=== PATIENT | female | born 1940 | race Caucasian/White ===

== ENCOUNTER → 2016-06-10 | Outpatient (CLI) | payer MEDICARE ==
--- NOTE | 2016-06-10 10:49 | US ---
EXAMINATION TYPE: US thyroid st tissue head/neck DATE OF EXAM: 06/10/2016 10:36 AM COMPARISON: prior us in pacs CLINICAL HISTORY: E04.2 NONTOXIC MULTINODULAR GOITER. follow up on known nodules GLAND SIZE: Right Lobe: 3.4 x 1.2 x 1.5cm Left Lobe: 3.5 x 1.1 x 0.7 cm Isthmus Thickness: 0.3 cm NODULES RIGHT: # of nodules measured on right: 2 1. 1.0 X 0.4 x 0.6 cm hypoechoic complex cystic nodule at the upper anterior pole with well-defined margins. This nodule is wider than tall and shows no intranodular vascularity. Prior size: 0.9 x 0.5 x 0.4 cm 2. 1.2 X 0.6 x 0.4 cm hypoechoic mixed nodule at the anterior mid pole with well-defined margins. T his nodule is wider than tall and shows intranodular vascularity. Prior size: 1.3 x 0.9 x 0.7 cm LEFT: # of nodules measured on left: 1 1. 0.8 X 0.4 x 0.6 cm hypoechoic complex cystic nodule at the upper pole with well-defined margins. This nodule is wider than tall and shows no intranodular vascularity. Prior size: 1.1 x 1.0 x 0.7 cm ISTHMUS: # of nodules measured in the isthmus: 0 IMPRESSION: Stable multinodular thyroid given differences in technique. No significant interval change.
== END | disposition home or self-care (01) ==
LOC: LABWHC1 09:46
PROVIDERS: ATTEND Internal Medicine Endocrinology, Diabetes & Metabolism
DX: E04.2 Nontoxic multinodular goiter (principal)
CPT/HCPCS: 36415; 76536; 84439; 84443

== ENCOUNTER → 2016-12-17 | Outpatient (CLI) | payer MEDICARE ==
--- NOTE | 2016-12-17 16:36 | FL ---
EXAMINATION TYPE: FL barium swallow DATE OF EXAM: 12/17/2016 CLINICAL HISTORY: Reflux and dysphagia. TECHNIQUE: A double contrast esophagram is performed utilizing air and barium. A total of 1 minute and 2 seconds of fluoroscopic time was utilized during procedure with 71 images obtained. COMPARISON: None FINDINGS: The esophagus shows normal motility and emptying into the stomach. Small hiatal hernia is s een as well as moderate intraesophageal and gastroesophageal reflux in the gravity independent portio n of the examination utilizing the Valsalva maneuver. No stricture was identified, however the distal esophagus demonstrated irregular mucosal margins on few images that may indicate esophagitis. Additi onally vertically oriented linear densities also may represent esophagitis, similarly within the dist al esophagus. IMPRESSION: Moderate intraesophageal and gastroesophageal reflux to the level of the midthoracic esop hagus. Irregular mucosal margins and vertically oriented linear densities within the distal esophagus likely relate to at least mild esophagitis. Direct visualization is recommended. Small hiatal hernia is also seen.
== END | disposition home or self-care (01) ==
LOC: RADFLWHC 10:46
PROVIDERS: ATTEND Otolaryngology
DX: K21.9 Gastro-esophageal reflux disease without esophagitis (principal); K44.9 Diaphragmatic hernia without obstruction or gangrene
CPT/HCPCS: 74220

== ENCOUNTER 2017-01-24 08:52 | Inpatient (IN) | payer MEDICARE ==
[2017-01-24] MEDS ORDERED: SODIUM CHLORIDE 0.9% 1,000 ML IV STA ×2 (09:20→11:19)
--- NOTE | 2017-01-24 09:25 | ED ---
General Adult HPI - General Chief complaint: Abdominal Pain Stated complaint: abdominal pain Time Seen by Provider: 01/24/17 09:00 Source: patient, RN notes reviewed, old records reviewed Mode of arrival: ambulatory Limitations: no limitations - History of Present Illness Initial comments: Patient 76-year-old female who presents emergency room today with chief complaint of fever with abdominal pain. Patient does not that she's had abdominal pain with some cough congestion off and on over the last month. She does not that she's been treated for urinary tract infection. Currently on antibiotics of much of her tone. States she's been on a few other antibiotics but was having reactions to home before starting this one. Sensation SHE had a fever today. States took ibuprofen last night. Patient states that she still experiencing discomfort throughout the abdomen. She admits to a cough that is been somewhat nonproductive. She does admit to acid reflux. Patient states she came back here to the emergency room patient has had fever with increased abdominal pain with nausea and vomiting over the last 2 days. States she's not had any appetite. Patient denies any recent back pain, numbness or tingling, dysuria or hematuria, constipation or diarrhea, headaches or visual changes, or any other complaints. - Related Data Home Medications Medication Instructions Recorded Confirmed Esomeprazole Magnesium [Nexium 20 mg PO DAILY 09/20/15 01/24/17 24Hr] metFORMIN HCL [Glucophage] 500 mg PO BID 09/20/15 01/24/17 Escitalopram [Lexapro] 10 mg PO DAILY 01/24/17 01/24/17 Nitrofurantoin Monohyd/M-Cryst 100 mg PO Q12HR 01/24/17 01/24/17 [Macrobid] amLODIPine BESYLATE [Norvasc] 5 mg PO DAILY 01/24/17 01/24/17 Allergies Allergy/AdvReac Type Severity Reaction Status Date / Time No Known Allergies Allergy Verified 01/24/17 08:57 Review of Systems ROS Statement: Those systems with pertinent positive or pertinent negative responses have been documented in the HPI. ROS Other: All systems not noted in ROS Statement are negative. Past Medical History Past Medical History: Chest Pain / Angina, GERD/Reflux, Hypertension, Osteoarthritis (OA), Thyroid Disorder Additional Past Medical History / Comment(s): diverticulitits, hemorrhoids, slight urinary incontinence,, Arthritis, thyroid nodules, prediabetic History of Any Multi-Drug Resistant Organisms: None Reported Past Surgical History: Adenoidectomy, Appendectomy, Bladder Surgery, Hysterectomy, Tonsillectomy Additional Past Surgical History / Comment(s): Colonoscopy, carpal tunnel release, bone spur removed from right foot. Past Anesthesia/Blood Transfusion Reactions: No Reported Reaction Past Psychological History: Anxiety Smoking Status: Never smoker Past Alcohol Use History: None Reported Past Drug Use History: None Reported - Past Family History Mother Family Medical History: No Reported History Son(s) Family Medical History: Cancer Additional Family Medical History / Comment(s): Brain CA/, 2nd son - pulmonary fibrosis - , 1 son in house fire. General Exam - General Exam Comments Initial Comments: General: The patient is awake and alert, in no distress, and does not appear acutely ill. Eye: Pupils are equal, round and reactive to light, extra-ocular movements are intact. No nystagmus. There is normal conjunctiva bilaterally. No signs of icterus. Ears, nose, mouth and throat: There are moist mucous membranes and no oral lesions. Neck: The neck is supple, there is no tenderness or JVD. Cardiovascular: There is a regular rate and rhythm. No murmur, rub or gallop is appreciated. Respiratory: Lungs are clear to auscultation, respirations are non-labored, breath sounds are equal. No wheezes, stridor, rales, or rhonchi. Gastrointestinal: Normal appearance abdomen. Normal bowel sounds. Abdomen soft on palpation. Patient has diffuse tenderness throughout both upper and lower quadrants. No rebound tenderness. No guarding. No CVA tenderness. Musculoskeletal: Normal ROM, no tenderness. Strength 5/5. Sensation intact. Pulses equal bilaterally 2+. Neurological: A&O x 3. CN II-XII intact, There are no obvious motor or sensory deficits. Coordination appears grossly intact. Speech is normal. Skin: Skin is warm and dry and no rashes or lesions are noted. Psychiatric: Cooperative, appropriate mood & affect, normal judgment. Limitations: no limitations Course Vital Signs 01/24/17 01/24/17 01/24/17 08:54 09:56 10:56 Temperature 101.4 F H 100.6 F H Pulse Rate 127 H 115 H 109 H Respiratory 18 18 18 Rate Blood Pressure 139/78 143/65 139/63 O2 Sat by Pulse 93 L 91 L 91 L Oximetry 01/24/17 11:48 Temperature 98.6 F Pulse Rate 104 H Respiratory 18 Rate Blood Pressure 134/74 O2 Sat by Pulse 91 L Oximetry Medical Decision Making - Medical Decision Making Patient reexamined at this time shows no signs of distress. Patient's urinalysis does show [address] the abdomen and pelvis does show evidence for colitis. Patient been given a dose Rocephin here in the emergency room 2 g. Patient did have fever or 101.4F was tachycardic. Patient admitted to the hospital for further IV antibiotics. Patient family wear the plan. - Lab Data Result diagrams: 01/24/17 09:15 01/24/17 09:15 Lab Results 01/24/17 01/24/17 01/24/17 Range/Units 09:15 09:15 09:15 WBC 8.5 (3.8-10.6) k/uL RBC 4.55 (3.80-5.40) m/uL Hgb 12.6 (11.4-16.0) gm/dL Hct 39.9 (34.0-46.0) % MCV 87.8 (80.0-100.0) fL MCH 27.7 (25.0-35.0) pg MCHC 31.5 (31.0-37.0) g/dL RDW 15.5 (11.5-15.5) % Plt Count 155 (150-450) k/uL Neutrophils % 88 % Lymphocytes % 7 % Monocytes % 3 % Eosinophils % 2 % Basophils % 0 % Neutrophils # 7.5 (1.3-7.7) k/uL Lymphocytes # 0.6 L (1.0-4.8) k/uL Monocytes # 0.2 (0-1.0) k/uL Eosinophils # 0.1 (0-0.7) k/uL Basophils # 0.0 (0-0.2) k/uL PT (9.0-12.0) sec INR (<1.2) APTT (22.0-30.0) sec Sodium 138 (137-145) mmol/L Potassium 4.8 (3.5-5.1) mmol/L Chloride 103 (98-107) mmol/L Carbon Dioxide 22 (22-30) mmol/L Anion Gap 13 mmol/L BUN 17 (7-17) mg/dL Creatinine 0.68 (0.52-1.04) mg/dL Est GFR (MDRD) Af Amer >60 (>60 ml/min/1.73 sqM) Est GFR (MDRD) Non-Af >60 (>60 ml/min/1.73 sqM) Glucose 185 H (74-99) mg/dL Plasma Lactic Acid Reji 2.2 H* (0.7-2.0) mmol/L Calcium 9.5 (8.4-10.2) mg/dL Total Bilirubin 1.0 (0.2-1.3) mg/dL AST 33 (14-36) U/L ALT 39 (9-52) U/L Alkaline Phosphatase 37 L (38-126) U/L Total Protein 7.7 (6.3-8.2) g/dL Albumin 4.4 (3.5-5.0) g/dL Urine Color Urine Appearance (Clear) Urine pH (5.0-8.0) Ur Specific [place] (1.001-1.035) Urine Protein (Negative) Urine Glucose (UA) (Negative) Urine Ketones (Negative) Urine Blood (Negative) Urine Nitrite (Negative) Urine Bilirubin (Negative) Urine Urobilinogen (<2.0) mg/dL Ur Leukocyte Esterase (Negative) Urine RBC (0-5) /hpf Urine WBC (0-5) /hpf Ur Squamous Epith Cells (0-4) /hpf Urine Mucus (None) /hpf 01/24/17 01/24/17 Range/Units 09:15 09:15 WBC (3.8-10.6) k/uL RBC (3.80-5.40) m/uL Hgb (11.4-16.0) gm/dL Hct (34.0-46.0) % MCV (80.0-100.0) fL MCH (25.0-35.0) pg MCHC (31.0-37.0) g/dL RDW (11.5-15.5) % Plt Count (150-450) k/uL Neutrophils % % Lymphocytes % % Monocytes % % Eosinophils % % Basophils % % Neutrophils # (1.3-7.7) k/uL Lymphocytes # (1.0-4.8) k/uL Monocytes # (0-1.0) k/uL Eosinophils # (0-0.7) k/uL Basophils # (0-0.2) k/uL PT 10.9 (9.0-12.0) sec INR 1.1 (<1.2) APTT 22.6 (22.0-30.0) sec Sodium (137-145) mmol/L Potassium (3.5-5.1) mmol/L Chloride (98-107) mmol/L Carbon Dioxide (22-30) mmol/L Anion Gap mmol/L BUN (7-17) mg/dL Creatinine (0.52-1.04) mg/dL Est GFR (MDRD) Af Amer (>60 ml/min/1.73 sqM) Est GFR (MDRD) Non-Af (>60 ml/min/1.73 sqM) Glucose (74-99) mg/dL Plasma Lactic Acid Reji (0.7-2.0) mmol/L Calcium (8.4-10.2) mg/dL Total Bilirubin (0.2-1.3) mg/dL AST (14-36) U/L ALT (9-52) U/L Alkaline Phosphatase (38-126) U/L Total Protein (6.3-8.2) g/dL Albumin (3.5-5.0) g/dL Urine Color Yellow Urine Appearance Cloudy H (Clear) Urine pH 6.0 (5.0-8.0) Ur Specific [place] 1.021 (1.001-1.035) Urine Protein 1+ H (Negative) Urine Glucose (UA) Negative (Negative) Urine Ketones Trace H (Negative) Urine Blood Negative (Negative) Urine Nitrite Negative (Negative) Urine Bilirubin Negative (Negative) Urine Urobilinogen <2.0 (<2.0) mg/dL Ur Leukocyte Esterase Moderate H (Negative) Urine RBC 4 (0-5) /hpf Urine WBC 17 H (0-5) /hpf Ur Squamous Epith Cells 6 H (0-4) /hpf Urine Mucus Few H (None) /hpf Disposition Clinical Impression: Colitis, UTI (urinary tract infection), Fever Disposition: ADMITTED IP TO THIS [facility] Condition: Good Referrals: Ozzy Stout DO [Primary Care Provider] - 1-2 days Time of Disposition: 11:30
[2017-01-24] MEDS ORDERED: ACETAMINOPHEN IV (For NPO) 1,000 MG in EMPTY BAG 1 BAG IVPB STA (09:28)
[2017-01-24] MEDS ORDERED: ONDANSETRON 4 MG/2 ML VIAL IVP STA (09:28)
[2017-01-24 09:43] LABS: Basophils % (A) 0 %; CH 28.2; CHCM 32.3; Eosinophils # (A) 0.1 k/uL (0-0.7); Eosinophils % (A) 2 %; HCT 39.9 % (34.0-46.0); HDW 2.62; HGB 12.6 gm/dL (11.4-16.0); Luc # (Auto) 0.06; Luc % (Auto) 1; Lymphocytes # (A) 0.6 k/uL (1.0-4.8); Lymphocytes % (A) 7 %; MCH 27.7 pg (25.0-35.0); MCHC 31.5 g/dL (31.0-37.0); MCV 87.8 fL (80.0-100.0); Mean Platelet Volume 7.6; Monocytes # (A) 0.2 k/uL (0-1.0); Monocytes % (A) 3 %; Neutrophils # (A) 7.5 k/uL (1.3-7.7); Neutrophils % (A) 88 %; RBC 4.55 m/uL (3.80-5.40); RDW 15.5 % (11.5-15.5); WBC 8.5 k/uL (3.8-10.6); WBC (Perox) 8.93
[2017-01-24 09:52] LABS: Anion Gap 13 mmol/L; Calcium 9.5 mg/dL (8.4-10.2); Carbon Dioxide 22 mmol/L (22-30); Chloride 103 mmol/L (98-107); Glucose 185 mg/dL (74-99); Non-African American GFR(MDRD) >60 (>60 ml/min/1.73 sqM); Sodium 138 mmol/L (137-145); Total Protein 7.7 g/dL (6.3-8.2)
[2017-01-24 09:53] LABS: INR 1.1 (<1.2); Partial Thromboplastin Time 22.6 sec (22.0-30.0); Prothrombin Time 10.9 sec (9.0-12.0)
--- NOTE | 2017-01-24 09:53 | XR ---
EXAMINATION TYPE: XR chest 2V DATE OF EXAM: 01/24/2017 HISTORY: cough. REFERENCE: Previous study dated 03/07/2015. FINDINGS: Lung volumes are prominent. The lungs are clear. Pleural space are clear. The heart is not enlarged.. IMPRESSION: COPD.
[2017-01-24 09:54] LABS: Appearance,Urine Cloudy (Clear); Bilirubin,Urine Negative (Negative); Glucose,Urine (UA) Negative (Negative); Ketones,Urine Trace (Negative); Leukocyte Esterase,Urine Moderate (Negative); Mucus,Urine Few /hpf; Nitrite,Urine Negative (Negative); Particle Count 8840; Potassium 4.8 mmol/L (3.5-5.1); Protein,Urine 1+ (Negative); RBC,Urine 4 /hpf (0-5); Specific Gravity,Urine 1.021 (1.001-1.035); Squamous Epithelial Cell,Urine 6 /hpf (0-4); UA Billing (MACRO vs. MICRO) MICRO; Urobilinogen,Urine <2.0 mg/dL (<2.0); WBC,Urine 17 /hpf (0-5)
[2017-01-24 09:55] LABS: ALT 39 U/L (9-52); AST 33 U/L (14-36); Alkaline Phosphatase 37 U/L (38-126); Blood Urea Nitrogen 17 mg/dL (7-17)
[2017-01-24] MEDS ORDERED: RX INFO: IV CONTRAST WAS GIVEN 1 EACH MISC MISCELLANE PRN (10:10)
--- NOTE | 2017-01-24 11:00 | CT ---
EXAMINATION TYPE: CT abdomen pelvis w con DATE OF EXAM: 01/24/2017 REFERENCE: Previous study dated 12/19/2009 HISTORY: Pain HISTORY: Abdomen pain REFERENCE: NONE CT DLP: 570.8 mGy Automated exposure control for dose reduction was used. TECHNIQUE: Helical acquisition through the abdomen and pelvis was obtained following the oral ingesti on of without Oral Contrast and following intravenous administration of 100 mL of Omnipaque 300. The data was reformatted in axial, coronal and sagittal projections. FINDINGS: There is dependent atelectasis in the dependent portions of the lungs. There is no pleural or pericardial fluid. The heart is mildly enlarged. Within the abdomen, the liver is mildly prominent measuring 18 cm. The liver is fatty infiltrated. Sp meche and gallbladder are normal. Both adrenal glands are normal. Both kidneys demonstrate function and appear morphologically normal. The pancreas is unremarkable. There is no significant retroperitoneal, iliac or inguinal adenopathy. The bladder is unremarkable. Uterus and ovaries are not visualized. There are scattered diverticula within the sigmoid colon. There is no radiographic evidence of divert iculitis. There is mild thickening of the mucosa of the sigmoid colon as well as the ascending colon The appendix is not visualized. Small bowel loops are normal in caliber. There is no free fluid and no free air identified. There is mild hypertrophic spondylosis as well as degenerative disc disease in the spine. IMPRESSION: 1. THICKENING OF THE SIGMOID COLON WELL PART OF THE ASCENDING COLON IS SUSPICIOUS FOR COLITIS P LEASE CORRELATE CLINICALLY. 2. MILD CARDIOMEGALY. 3. MILD HEPATOMEGALY AND FATTY INFILTRATION OF THE LIVER. 4. SCATTERED DIVERTICULA WITHIN THE SIGMOID COLON. 5. MILD DEGENERATIVE CHANGE WITHIN THE SPINE.
[2017-01-24] MEDS ORDERED: cefTRIAXone IN SWFI 1,000 MG/10 ML SYRINGE IVP STA (11:26)
[2017-01-24] MEDS ORDERED: cefTRIAXone IN SWFI 2,000 MG/20 ML SYRINGE IVP STA (11:28)
[2017-01-24] MEDS ORDERED: ONDANSETRON 4 MG/2 ML VIAL IVP PRN (12:21)
[2017-01-24] MEDS ORDERED: NALOXONE 0.4 MG/ML 1 ML VIAL IV PRN (12:21)
[2017-01-24] MEDS ORDERED: HYDROmorphone 1 MG/ML 1 ML SYRINGE IVP PRN (12:21)
[2017-01-24 13:51] LABS: Glucose,Whole Blood 146 mg/dL (75-99)
[2017-01-24] MEDS ORDERED: LEVOFLOXACIN 500MG-D5W PMX 500 MG in DEXTROSE/WATER 1 100ML.BAG IVPB SCH (16:00)
[2017-01-24] MEDS: ACETAMINOPHEN TAB 325 MG TAB PO PRN ×2 (16:03→21:23)
[2017-01-24 17:16] LABS: Glucose,Whole Blood 132 mg/dL (75-99)
[2017-01-24] MEDS: metroNIDAZOLE 500 MG TAB PO SCH ×2 (17:25→21:06)
--- NOTE | 2017-01-24 17:47 | HP ---
HISTORY AND PHYSICAL DATE OF SERVICE: 01/24/2017 I am covering for Dr. Stout. CHIEF COMPLAINT: Abdominal pain. HISTORY OF PRESENT ILLNESS: This 76-year-old woman with a past medical history of multiple medical problems including, GERD, hypertension, DJD, history of diverticulitis complaining of abdominal pain. The pain is felt and diffusely with some underlying fever. The patient has some cough and congestion also. Patient recently treated diagnosed with a UTI in outpatient setting. Because of lack of improvement, patient came to [facility] and admitted to the hospital further recommendations to follow. There is no history of any rigors. No history of headache, loss of consciousness or seizures. Patient had an abdominal pelvic CT scan which was reviewed by me which showed some thickening of the sigmoid colon, as well as part of the ascending colon suspicions of colitis. Otherwise, mild hepatomegaly was noted. There is no history of any fever, rigors or chills. No history of headache, loss of consciousness or seizures. PAST MEDICAL HISTORY: History of chest pain, GERD, hypertension DJD, PAST SURGICAL HISTORY: none MEDS: 2. Norvasc 5 mg p.o. daily. 4. Lexapro 10 mg daily. 5. Macrobid 100 mg p.o. b.i.d. 6. Glucovance 500 mg p.o. b.i.d. ALLERGIES: CIPRO. FAMILY HISTORY: History of cancer in the family. Brain cancer. SOCIAL HISTORY: No history of smoking. No history of alcohol intake. REVIEW OF SYSTEMS: ENT: No diminished vision. No diminished hearing. Cardiovascular: No angina or palpitations. Respirations: No cough or hemoptysis. GI: No nausea or vomiting. : No dysuria. Nervous system: No numbness or weakness. Allergy/Immunology: No asthma or hayfever. Musculoskeletal: As mentioned earlier. Hematology/Oncology: No history of anemia. Endocrine: No history of diabetes or hypothyroidism. Constitutional: As mentioned earlier. Dermatology: Negative. Rheumatology: Negative. Psychiatric : As mentioned earlier. PHYSICAL EXAMINATION: Alert and oriented times three. Pulse is 105, blood pressure 170/62, respiration 18, temp 99.1, pulse ox 98% room air. HEENT conjunctivae normal. Oral mucosa moist. Neck is no jugular venous distention. No carotid bruits. No lymph node enlargement. Cardiovascular: S1, S2 muffled. Breath sounds diminished in the bases. No rhonchi. No crackles. ABDOMEN: Soft. Mild diffuse discomfort on palpation. No guarding. No rigidity. No mass palpable. Legs: No edema, no swelling. Central nervous system: Higher functions as mentioned. Moves all four extremities. No focal deficits. Lymphatics: No lymph nodes palpable in the neck, axillae or groin. Skin: No ulcer, rashes or bleeding. LAB: CBC within normal limits. Otherwise, plasma lactic acidosis is 2.2. UA noted. ASSESSMENT: 1. Abdominal pain with possibly sigmoid colitis. 2. Acute urinary tract infection possibly. 3. History of gastroesophageal reflux disease. 4. Hypertension. 5. History of degenerative joint disease. 6. Hypothyroidism. 7. History of hemorrhoids. 8. History of anxiety and depression. RECOMMENDATION: In this 76-year-old woman who presented with multiple complex medical issues, we will monitor the patient closely, continue the current management. Continue symptomatic treatment. Broad spectrum IV antibiotics. Otherwise, I would also recommend Flagyl to also add to the regime. Repeat labs. Symptomatic treatment for the pain. Consult Dr. Hunt for surgical evaluation. Further recommendations to follow. The patient will follow with Dr. Aponte who is the primary care physician. MMODL / IJN: [id number] / MTDD
[2017-01-24 20:57] LABS: Glucose,Whole Blood 173 mg/dL (75-99)
[2017-01-24] MEDS: HEPARIN SODIUM,PORCINE 5,000 UNIT/ML 1 ML VIAL SQ SCH (21:06)
[2017-01-24] MEDS: diphenhydrAMINE 50 MG/ML 1 ML VIAL IVP PRN (21:12)
[2017-01-24] MEDS ORDERED: IBUPROFEN 400 MG TAB PO STA (23:29)
[2017-01-24 23:34] LABS: Basophils % (A) 0 %; CH 27.7; CHCM 31.8; Eosinophils # (A) 0.2 k/uL (0-0.7); Eosinophils % (A) 3 %; HCT 34.7 % (34.0-46.0); HDW 2.76; HGB 10.9 gm/dL (11.4-16.0); Hypochromasia Slight; Luc # (Auto) 0.05; Luc % (Auto) 1; Lymphocytes # (A) 0.7 k/uL (1.0-4.8); Lymphocytes % (A) 13 %; MCH 27.4 pg (25.0-35.0); MCHC 31.3 g/dL (31.0-37.0); MCV 87.3 fL (80.0-100.0); Mean Platelet Volume 7.6; Monocytes # (A) 0.2 k/uL (0-1.0); Monocytes % (A) 3 %; Neutrophils # (A) 4.1 k/uL (1.3-7.7); Neutrophils % (A) 79 %; RBC 3.97 m/uL (3.80-5.40); RDW 13.9 % (11.5-15.5); WBC 5.1 k/uL (3.8-10.6); WBC (Perox) 5.07
[2017-01-25] MEDS: diphenhydrAMINE 50 MG/ML 1 ML VIAL IVP PRN (05:56)
[2017-01-25 07:32] LABS: Glucose,Whole Blood 127 mg/dL (75-99)
[2017-01-25 08:04] LABS: Basophils % (A) 0 %; CH 26.8; CHCM 30.9; Eosinophils # (A) 0.1 k/uL (0-0.7); Eosinophils % (A) 3 %; HCT 34.4 % (34.0-46.0); HDW 2.55; HGB 10.8 gm/dL (11.4-16.0); Hypochromasia Slight; Luc # (Auto) 0.06; Luc % (Auto) 2; Lymphocytes # (A) 0.7 k/uL (1.0-4.8); Lymphocytes % (A) 18 %; MCH 27.3 pg (25.0-35.0); MCHC 31.4 g/dL (31.0-37.0); Mean Platelet Volume 8.2; Monocytes # (A) 0.2 k/uL (0-1.0); Monocytes % (A) 4 %; Neutrophils # (A) 2.8 k/uL (1.3-7.7); Neutrophils % (A) 74 %; RBC 3.96 m/uL (3.80-5.40); RDW 14.9 % (11.5-15.5); WBC 3.9 k/uL (3.8-10.6)
[2017-01-25] MEDS: PANTOPRAZOLE 40 MG TABLET PO SCH (08:05)
[2017-01-25] MEDS: amLODIPine 5 MG TAB PO SCH (08:05)
[2017-01-25] MEDS: metroNIDAZOLE 500 MG TAB PO SCH ×3 (08:06→22:56)
[2017-01-25] MEDS: HEPARIN SODIUM,PORCINE 5,000 UNIT/ML 1 ML VIAL SQ SCH ×2 (08:06→20:37)
[2017-01-25] MEDS: ESCITALOPRAM 10 MG TAB PO SCH (08:06)
[2017-01-25 08:28] LABS: ALT 43 U/L (9-52); AST 25 U/L (14-36); Alkaline Phosphatase 30 U/L (38-126); Anion Gap 7 mmol/L; Blood Urea Nitrogen 13 mg/dL (7-17); Calcium 8.7 mg/dL (8.4-10.2); Carbon Dioxide 23 mmol/L (22-30); Chloride 111 mmol/L (98-107); Glucose 132 mg/dL (74-99); Non-African American GFR(MDRD) >60 (>60 ml/min/1.73 sqM); Potassium 3.7 mmol/L (3.5-5.1); Sodium 141 mmol/L (137-145); Total Bilirubin 0.4 mg/dL (0.2-1.3); Total Protein 5.8 g/dL (6.3-8.2)
[2017-01-25] MEDS ORDERED: cefTRIAXone IN SWFI 2,000 MG/20 ML SYRINGE IVP SCH (09:00)
--- NOTE | 2017-01-25 11:33 | CONS ---
CONSULTATION HISTORY: Thank you very much for asking us to see Ms. Hung. She has been seeing before Dr. Escobedo. She is a 76-year-old white female who has a history of urinary tract infection. She has had some lower abdominal pain off and on. Currently on antibiotic, but she states that she has not responded. In fact she was admitted with more abdominal pain, nausea, vomiting. Claims she did have a few loose stools about 3 or 4 days prior to admission, but the last 2 days she has had normal formed stool. Her CT scan in the ER did show evidence of question of colitis with thickening of the bowel wall in the transverse and sigmoid colon and diverticulosis without evidence of diverticulitis. She thinks she had a colonoscopy many years ago, but not in the recent past. No history of colitis or inflammatory bowel disease. Has been however on several different antibiotic courses over the last several months. Does have a lot of allergies to different antibiotics. She feels a lot better since admission. No nausea, vomiting now. She is tolerating p.o. fluids. PAST HISTORY: Positive for reflux disease, diverticulitis in the past. History of hypothyroidism, GERD, hypertension, degenerative joint disease, chest pains. PAST SURGICAL HISTORY: Previous surgery includes a bladder suspension surgery. T and A, appendectomy, hysterectomy, tonsillectomy and colonoscopy, carpal tunnel release and bone spur removal from the foot. Does have a history of anxiety. MEDICATIONS: Include metformin for her diabetes. Also Lexapro, Macrobid at home now, discontinued; Norvasc and Nexium. REVIEW OF SYMPTOMS: Systems review as above. No current chest pain. Has had a cough, mild. No hemoptysis. No vaginal discharge or bleeding. No blood in the stool. PHYSICAL EXAMINATION: On examination, the patient is well built, well nourished, somewhat overweight at 28.3 BMI. Hydration appears satisfactory. She is resting comfortably in no acute distress. Temperature is 99. Color and hydration is satisfactory. Heart regular rhythm. No murmurs. Lungs are clear. Abdomen is a little obese, soft, mild tenderness in the low abdomen, but no guarding or rebound or rigidity. No mass or organomegaly or hernias noted. No definite CVA tenderness. Well-healed lower abdominal scars. INVESTIGATIONS: CT was reviewed showing thickening of the sigmoid colon and ascending colon. I suspect this is nonspecific in nature. Doubt inflammatory condition. Mild hepatomegaly and fatty infiltration of the liver was noted and diverticulosis without inflammation. IMPRESSION: Suspect symptoms are probably secondary to urinary tract infection. Doubt inflammatory condition of the bowel since she has not had any diarrhea in the last several days. However, I do recommend a colonoscopy once she has recovered from the current situation. In the meantime, continue with the antibiotics. Normal diet. Dr. Escobedo will follow up with her from tomorrow. MMODL / ARCELIAN: [id number] /
[2017-01-25 12:23] LABS: Glucose,Whole Blood 196 mg/dL (75-99)
[2017-01-25] MEDS: HYDROcodone/APAP 5-325MG 1 EACH TAB PO PRN ×2 (14:28→20:36)
[2017-01-25] MEDS ORDERED: IBUPROFEN 400 MG TAB PO PRN (15:54)
--- NOTE | 2017-01-25 17:36 | PN ---
PROGRESS NOTE I am covering for Dr. Stout. DATE OF SERVICE: 01/25/2017 This 76-year-old woman who had a past medical history of multiple medical problems admitted with abdominal pain and possible sigmoid colitis. Patient also has skin rash. Also patient had UTI. Patient on empiric antibiotics. No chest pain. No palpitations. No fever. EXAM: Alert and oriented x3. Pulse is 94, blood pressure 139/72, respirations 16, temperature 99.1, T-max 102.7, pulse ox 95% on 2 L. HEENT: Conjunctivae normal. NECK: No jugular venous distention. CARDIOVASCULAR: S1, S2. RESPIRATORY: Breath sounds diminished in the bases. A few scattered rhonchi and crackles. ABDOMEN: Soft, nontender. LEGS: No edema. NERVOUS SYSTEM: No focal deficits. LABS: WBC 3.2, hemoglobin 10.8. ASSESSMENT: 1. Abdominal pain with possible sigmoid colitis. 2. Acute urinary tract infection possibly. 3. Continued fever. 4. Skin rash, possible allergic. 5. History of gastroesophageal reflux disease. 6. Hypertension. 7. History of degenerative joint disease. 8. Hypothyroidism. 9. History hemorrhoids. 10.History of anxiety, depression. RECOMMENDATIONS AND DISCUSSION: I recommend to continue current medications and symptomatic treatment. Continue on broad-spectrum IV antibiotics. Guarded prognosis because of multiple complex medical issues and further recommendations to follow. Otherwise I would also recommend Dr. Hunt has been consulted for abdominal pain. I would also consult Infectious Disease for evaluation. Otherwise, guarded prognosis because of multiple complex medical issues. Further recommendations to follow. Dr. Stout will follow. MMODL / IJN: [id number] /
[2017-01-25 17:37] LABS: Glucose,Whole Blood 107 mg/dL (75-99)
[2017-01-25 21:17] LABS: Glucose,Whole Blood 281 mg/dL (75-99)
[2017-01-25] MEDS: AZTREONAM 2 GM in SODIUM CHLORIDE 0.9% 100 ML IVPB SCH (22:56)
--- NOTE | 2017-01-26 05:32 | CONS ---
CONSULTATION DATE OF SERVICE: 01/25/2017. REASON FOR CONSULTATION: Fever and colitis. HISTORY OF PRESENT ILLNESS: The patient is a 76-year-old female who presented to the ER at [facility] on 01/24/2017 with chief complaints of abdominal pain. The patient's symptom has been going on for the last 2 days prior to presentation to hospital. The pain has been more across the abdominal area 7 to 10/23. The patient has been nauseated with the patient did mention that she did have loose stool 2 days prior to presentation to the hospital. However, since the patient has been in the hospital diarrhea has resolved. The patient was evaluated by the ER physician. On arrival to the ER the patient did have a fever of 101.4 degrees Fahrenheit. The patient did have a normal white count though. The UA was positive. The patient did have a CT abdominal pelvis was done with IV contrast only. No oral contrast. Did show evidence of ascending colon as well as sigmoid colitis, but no evidence of any diverticulitis. The patient was started on Rocephin and Flagyl. Subsequently the patient developed a rash and now having a persistent fever for which ID was consulted for further recommendation regarding rash as well as antibiotic therapy. The patient did mention that her abdominal pain is currently resolved. She denies having any nausea, vomiting. No further BMs. No significant urinary symptoms of any burning or frequency. REVIEW OF SYSTEMS: Constitutional: Positive for weakness and fever. Eyes no complaint. ENT no complaint. Respiratory no complaint. Cardiovascular no complaint. Genitourinary no complaint. Gastrointestinal As per HPI. Musculoskeletal no complaint. Integumentary As per HPI. PSYCHOLOGICAL: No complaint. Endocrine no complaint. Neurological no complaint. PAST MEDICAL HISTORY: Significant for hypertension, hypothyroidism, osteoarthritis, gastroesophageal reflux disease, angina, urinary incontinence and UTIs. PAST SURGICAL HISTORY: Significant for appendectomy, adenoidectomy, bladder surgery, hysterectomy, tonsillectomy. SOCIAL HISTORY: No history of smoking, drinking, or drug use. FAMILY HISTORY: Son with brain cancer, second son with pulmonary fibrosis. ALLERGIES TO: CIPROFLOXACIN WITH A RASH. MEDICATIONS: Include the patient is currently on Tylenol, Candor, Norvasc, Rocephin 2 g daily , she is on Benadryl, Lexapro, heparin, Dilaudid, Motrin, Flagyl, Narcan, Zofran and Protonix. EXAMINATION: Blood pressure is 133/65 with a pulse of 98, temperature of 100.4, T-max 102.7. She is 94% on 2 L nasal cannula. General description is an elderly female, lying in bed in no distress. No tachypnea or accessory muscle of respiration use. HEENT: Shows slight pallor. No scleral icterus. Oral mucous membranes dry. Neck trachea central no thyromegaly. Lungs unlabored breathing. Clear to auscultation anteriorly. No wheeze or crackle. Heart S1, S2. Regular rate and rhythm. ABDOMEN: Soft, no tenderness. No guarding or rigidity. EXTREMITIES: No edema of the feet. Examination shows a maculopapular rash involving the upper and lower extremity and the trunk. Neurological patient is awake, alert, oriented x3. Mood and affect normal. LABS: Hemoglobin is 10.8, white count 3.9, BUN of 13, creatinine 0.60. Electrolytes have been normal. Liver enzymes are normal. Urine was positive. Culture so far negative. Blood cultures negative. CT report mentioned above. DIAGNOSTIC IMPRESSION AND PLAN: Patient admitted to the hospital with fever, abdominal pain. Patient did have evidence of colitis involving the ascending and sigmoid colon but did not have any evidence of diverticulitis. The patient did have some diarrhea prior to that and has some negative antibiotic exposure. C dif would have been the likely etiology. However, unlikely in view of resolution of her diarrhea and the patient does seem to have improvement with Rocephin and Flagyl therapy. Now the patient did develop a rash more likely secondary to the Rocephin and some of this persistent fever could be related to the Rocephin administration and allergic reaction. PLAN: 1. We will discontinue the Rocephin. 2. Will start the patient on Azactam 2 g q.8h and continue with Flagyl. 3. Depending upon clinical response, we will adjust her medications further if needed. Thank you for this consultation. Will follow this patient along with you. MMODL / IJN: [id number] / MTDD
[2017-01-26 07:36] LABS: Glucose,Whole Blood 120 mg/dL (75-99)
[2017-01-26] MEDS: HYDROcodone/APAP 5-325MG 1 EACH TAB PO PRN ×2 (07:39→22:31)
--- NOTE | 2017-01-26 07:53 | P.PN ---
Progress Note - Text Progress Note Date: 01/26/17 The patient states she feels better. She has no significant abdominal pain. On exam her vital signs are stable. Her abdomen soft. Patiently discharged home per Dr. Stout. She'll follow-up with myself in the office and be scheduled for outpatient colonoscopy.
[2017-01-26] MEDS: amLODIPine 5 MG TAB PO SCH (07:59)
[2017-01-26] MEDS: HEPARIN SODIUM,PORCINE 5,000 UNIT/ML 1 ML VIAL SQ SCH ×2 (07:59→20:23)
[2017-01-26] MEDS: AZTREONAM 2 GM in SODIUM CHLORIDE 0.9% 100 ML IVPB SCH ×2 (07:59→16:55)
[2017-01-26] MEDS: ESCITALOPRAM 10 MG TAB PO SCH (07:59)
[2017-01-26] MEDS: PANTOPRAZOLE 40 MG TABLET PO SCH (07:59)
[2017-01-26] MEDS: metroNIDAZOLE 500 MG TAB PO SCH ×3 (08:00→22:31)
[2017-01-26] MEDS: metFORMIN 500 MG TAB PO SCH ×2 (08:02→17:33)
[2017-01-26] MEDS: diphenhydrAMINE 50 MG/ML 1 ML VIAL IVP PRN (08:08)
[2017-01-26 08:30] LABS: Basophils % (A) 0 %; CH 27.1; CHCM 30.9; Eosinophils # (A) 0.2 k/uL (0-0.7); Eosinophils % (A) 7 %; HCT 35.7 % (34.0-46.0); HDW 2.67; Hypochromasia Moderate; Luc # (Auto) 0.03; Luc % (Auto) 1; Lymphocytes # (A) 0.9 k/uL (1.0-4.8); Lymphocytes % (A) 29 %; MCH 27.2 pg (25.0-35.0); MCHC 30.8 g/dL (31.0-37.0); MCV 88.1 fL (80.0-100.0); Mean Platelet Volume 8.5; Monocytes # (A) 0.1 k/uL (0-1.0); Monocytes % (A) 5 %; Neutrophils # (A) 1.9 k/uL (1.3-7.7); Neutrophils % (A) 59 %; RBC 4.06 m/uL (3.80-5.40); RDW 15.2 % (11.5-15.5); WBC 3.2 k/uL (3.8-10.6); WBC (Perox) 3.49
[2017-01-26 08:47] LABS: Anion Gap 9 mmol/L; Blood Urea Nitrogen 12 mg/dL (7-17); Carbon Dioxide 23 mmol/L (22-30); Chloride 110 mmol/L (98-107); Glucose 130 mg/dL (74-99); Non-African American GFR(MDRD) >60 (>60 ml/min/1.73 sqM); Potassium 4.1 mmol/L (3.5-5.1); Sodium 142 mmol/L (137-145)
--- NOTE | 2017-01-26 10:10 | P.PN ---
Subjective Progress Note Date: 01/26/17 76-year-old female who was seen and examined on rounds with Dr. Stout. The patient presented to the ER on 01/24/2017 with abdominal pain. She was recently treated outpatient for a UTI and was prescribed Macrobid. Her urinalysis in the emergency room showed moderate leukocyte esterase. The patient underwent CT of the abdomen and pelvis which revealed thickening of the sigmoid colon as well as part of the ascending colon which was suspicious for colitis. Surgical consultation was obtained who believes abdominal pain is due to urinary tract infection rather than colitis as she is not having diarrhea. No acute intervention per surgery, but recommends patient have colonoscopy outpatient. Infectious disease was consulted for antibiotic management. The patient developed a rash on her lateral upper extremities. Patient's Rocephin was discontinued. She remains on Flagyl and was also started on Azactam per infectious disease. Urine culture was negative. Blood culture negative at 24 hour ashtyn. Objective - Vital Signs Vital signs: Vital Signs Temp 97.7 F 01/26/17 07:00 Pulse 81 01/26/17 07:00 Resp 17 01/26/17 07:00 BP 141/86 01/26/17 07:00 Pulse Ox 95 01/26/17 09:35 Intake & Output 01/25/17 01/26/17 01/26/17 18:59 06:59 18:59 Intake Total 1100 300 Output Total 1 Balance 1100 299 Intake: Oral 1100 300 Output: Stool 1 Other: Voiding Method Toilet Toilet # Voids 3 1 - Exam GENERAL: This is a 76-year-old female in no apparent distress at the time of examination. Pleasant and cooperative. HEENT: Head is atraumatic, normocephalic. Pupils are equal, round, and reactive to light. Sclerae anicteric. Conjunctivae are clear. Mucus membranes of the mouth are moist. Neck is supple. RESPIRATORY: Clear to ausculation. No wheezes, rales, or rhonchi. No use of accessory muscles. Patient maintaining oxygen saturation greater than 92%. No chest wall tenderness is noted on palpation or with deep breathing. CARDIOVASCULAR: Regular rate and rhythm. S1 and S2 noted. No systolic or diastolic murmur auscultated. No JVD noted. No S3 or S4 noted. GASTROINTESTINAL: No distention noted. Abdomen soft and round. Normal active bowel sounds auscultated X 4 quadrants. No pain or tenderness noted upon palpation. INTEGUMENTARY: No cyanosis. No jaundice. No rashes noted. No cellulitis noted. EXTREMITIES: 2+ peripheral pulses. No evidence of peripheral edema. No calf tenderness noted. NEUROLOGIC: Cranial nerves II-XII intact. PSYCHIATRIC: Awake, alert, and oriented X 3. Appropriate affect. Intact judgement and insight. - Labs CBC & Chem 7: 01/26/17 07:53 01/26/17 07:53 Labs: Abnormal Lab Results - Last 24 Hours (Table) 01/25/17 01/25/17 01/25/17 Range/Units 07:40 12:15 17:33 WBC (3.8-10.6) k/uL Hgb (11.4-16.0) gm/dL MCHC (31.0-37.0) g/dL Plt Count (150-450) k/uL Lymphocytes # (1.0-4.8) k/uL Chloride (98-107) mmol/L Glucose (74-99) mg/dL POC Glucose (mg/dL) 196 H 107 H (75-99) mg/dL Hemoglobin A1c 6.7 H (4.0-6.0) % 01/25/17 01/26/17 01/26/17 Range/Units 21:09 07:34 07:53 WBC 3.2 L (3.8-10.6) k/uL Hgb 11.0 L (11.4-16.0) gm/dL MCHC 30.8 L (31.0-37.0) g/dL Plt Count 140 L (150-450) k/uL Lymphocytes # 0.9 L (1.0-4.8) k/uL Chloride (98-107) mmol/L Glucose (74-99) mg/dL POC Glucose (mg/dL) 281 H 120 H (75-99) mg/dL Hemoglobin A1c (4.0-6.0) % 01/26/17 Range/Units 07:53 WBC (3.8-10.6) k/uL Hgb (11.4-16.0) gm/dL MCHC (31.0-37.0) g/dL Plt Count (150-450) k/uL Lymphocytes # (1.0-4.8) k/uL Chloride 110 H (98-107) mmol/L Glucose 130 H (74-99) mg/dL POC Glucose (mg/dL) (75-99) mg/dL Hemoglobin A1c (4.0-6.0) % Microbiology - Last 24 Hours (Table) 01/24/17 09:15 Urine Culture - Final Urine,Voided 01/24/17 09:15 Blood Culture - Preliminary Blood No Growth after 24 hours Assessment and Plan Plan: ASSESSMENT: Urinary tract infection, present on admission, recently treated outpatient with Macrobid Abdominal pain, CT scan suggestive of possible sigmoid colitis, may be secondary to urinary tract infection, improving Rash of bilateral upper extremities, possibly secondary to Rocephin History of gastroesophageal reflux disease History of diverticulitis Essential hypertension Hypothyroidism PLAN: -Surgery on consult. No acute intervention at this time. -Patient to have colonoscopy outpatient. -Infectious disease on consult. Appreciate recommendations and input -Antibiotics per infectious disease: continue current antibiotics. If patients rash is better tomorrow she can receive one dose of unasyn tomorrow and then can be discharged home on Augmentin per Dr. Canada. -Short course of steroids for rash. Continue to monitor rash. -Home meds as appropriate -Monitor labs -Wean oxygen as tolerated -GI prophylaxis: Protonix 40 mg by mouth daily -DVT prophylaxis: Heparin 5000 units subcu every 12 hours -Monitor vital signs and address as appropriate -Discharge planning: Patient to return home Nurse practitioner note has been reviewed by physician. Signing provider agrees with the documented findings, assessment, and plan of care.
[2017-01-26 12:06] LABS: Glucose,Whole Blood 157 mg/dL (75-99)
--- NOTE | 2017-01-26 12:13 | PN ---
PROGRESS NOTE DATE OF SERVICE: 01/26/2017. REASON FOR FOLLOWUP: Colitis and drug rash. INTERVAL HISTORY: The patient fever pattern has improved. Afebrile since last night. The patient is feeling better slightly. Still having a rash, mostly in the left arm area. The patient denies any chest pain or shortness of breath, cough. No abdominal pain. Did not have a bowel movement though. EXAMINATION: Blood pressure 141/86 with a pulse of 81, temperature 97.7, she is 95% on 2 L nasal cannula. General description is an elderly female lying in bed in no distress. Respiratory system: Unlabored breathing clear to auscultation anteriorly, heart S1, S2. Regular rate and rhythm. Abdomen soft, no tenderness. Examination of the rash is mostly in the arm, though not as much on the torso. LABS: Hemoglobin is 11, white count 3.2 with a BUN of 12, creatinine 0.52. Blood and urine cultures so far negative. DIAGNOSTIC IMPRESSION AND PLAN: Patient admitted to the hospital with abdominal pain, no vomiting, diarrhea. The patient did have evidence of ascending and sigmoid colon colitis with no evidence of any diverticulitis. Patient did develop a rash secondary to Rocephin with improvement of the fever with discontinuation of the Rocephin. She is currently on Azactam and Flagyl that will be continued. for 24 hours and if that helps with the rash she will be given a test dose of Unasyn if she tolerates. Plan will be finish therapy with oral Augmentin. In the meantime if the patient did have loose stool we will request stool for C diff as well as stool culture. Plan of care discussed in detail with the nurse as well as the nurse practitioner for the primary team. MMODL / IJN: [id number] / MELISSA
[2017-01-26] MEDS: methylPREDNISolone SOD SUCCI 125 MG/2 ML VIAL IV SCH ×2 (12:47→17:33)
[2017-01-26 17:34] LABS: Glucose,Whole Blood 244 mg/dL (75-99)
[2017-01-26 21:08] LABS: Glucose,Whole Blood 257 mg/dL (75-99)
[2017-01-26 23:39] VITALS: RESP 16
[2017-01-27] MEDS: AZTREONAM 2 GM in SODIUM CHLORIDE 0.9% 100 ML IVPB SCH ×2 (00:37→08:37)
[2017-01-27] MEDS: methylPREDNISolone SOD SUCCI 125 MG/2 ML VIAL IV SCH ×2 (00:37→06:01)
[2017-01-27 07:54] LABS: Glucose,Whole Blood 212 mg/dL (75-99)
[2017-01-27 08:14] VITALS: BP 134/76; PULSE 77; TEMP 97.2
[2017-01-27] MEDS: metroNIDAZOLE 500 MG TAB PO SCH (08:36)
[2017-01-27] MEDS: ESCITALOPRAM 10 MG TAB PO SCH (08:36)
[2017-01-27] MEDS: amLODIPine 5 MG TAB PO SCH (08:36)
[2017-01-27] MEDS: HEPARIN SODIUM,PORCINE 5,000 UNIT/ML 1 ML VIAL SQ SCH (08:36)
[2017-01-27] MEDS: metFORMIN 500 MG TAB PO SCH (08:36)
[2017-01-27] MEDS: PANTOPRAZOLE 40 MG TABLET PO SCH (08:36)
[2017-01-27 08:52] LABS: Basophils % (A) 0 %; CH 27.7; CHCM 31.6; Eosinophils % (A) 0 %; HCT 34.8 % (34.0-46.0); HDW 2.93; HGB 10.9 gm/dL (11.4-16.0); Hypochromasia Slight; Luc # (Auto) 0.06; Luc % (Auto) 1; Lymphocytes % (A) 21 %; MCH 27.4 pg (25.0-35.0); MCHC 31.2 g/dL (31.0-37.0); MCV 87.8 fL (80.0-100.0); Mean Platelet Volume 7.5; Monocytes # (A) 0.1 k/uL (0-1.0); Monocytes % (A) 2 %; Neutrophils # (A) 3.5 k/uL (1.3-7.7); Neutrophils % (A) 75 %; RBC 3.97 m/uL (3.80-5.40); RDW 13.5 % (11.5-15.5); WBC 4.6 k/uL (3.8-10.6)
[2017-01-27 09:02] LABS: Anion Gap 12 mmol/L; Blood Urea Nitrogen 19 mg/dL (7-17); Calcium 9.8 mg/dL (8.4-10.2); Carbon Dioxide 20 mmol/L (22-30); Chloride 108 mmol/L (98-107); Glucose 217 mg/dL (74-99); Non-African American GFR(MDRD) >60 (>60 ml/min/1.73 sqM); Potassium 3.7 mmol/L (3.5-5.1); Sodium 140 mmol/L (137-145)
[2017-01-27] MEDS ORDERED: AMPICILLIN-SULBACTAM 1.5 GM in SODIUM CHLORIDE 0.9% 50 ML IVPB STA (09:56)
--- NOTE | 2017-01-27 10:18 | P.DS ---
Providers Date of admission: 01/24/17 12:18 Expected date of discharge: 01/27/17 Attending physician: Ozzy Stout Consults: 01/24/17 15:57 Consult Physician Routine Consulting Provider: Travis Hunt Consult Reason/Comments: abd pain Do you want consulting provider notified?: Yes 01/25/17 16:33 Consult Physician Routine Consulting Provider: Grace Canada Consult Reason/Comments: FEVER Do you want consulting provider notified?: Yes Primary care physician: Ozzy Stout [facility] Hospital Course: 76-year-old female who was seen and examined on rounds with Dr. Stout. The patient presented to the ER on 01/24/2017 with abdominal pain. She was recently treated outpatient for a UTI and was prescribed Macrobid. Her urinalysis in the emergency room showed moderate leukocyte esterase. The patient underwent CT of the abdomen and pelvis which revealed thickening of the sigmoid colon as well as part of the ascending colon which was suspicious for colitis. Surgical consultation was obtained who believes abdominal pain is due to urinary tract infection rather than colitis as she is not having diarrhea. No acute intervention per surgery, but recommends patient have colonoscopy outpatient. The patient prefers to follow up with Dr. Hunt on an outpatient basis for colonoscopy. Stool culture was obtained on 01/26/2017. Results are currently pending. Patient may follow-up with PCP regarding results. Infectious disease was consulted for antibiotic management. The patient developed a rash on her bilateral upper extremities. Patient's Rocephin was discontinued. She continued on Flagyl and was also started on Azactam per infectious disease. Urine culture was negative. Blood culture negative at 24 hour ashtyn. The patient received IV site Medrol 60 mg IV every 6 hours 4 doses for her rash as it was not improving. The patients rash has improved at the time of discharge. The patient received a one-time dose of Unasyn today per infectious disease. The patient was deemed stable for discharge per Dr. Stout. She is to follow up with him on an outpatient basis. patient also to follow up with Dr. Hunt for colonoscopy. A prescription for Augmentin was sent to her pharmacy. DISCHARGE DIAGNOSIS: Urinary tract infection, present on admission, recently treated outpatient with Macrobid, urine culture negative Abdominal pain, CT scan suggestive of possible sigmoid colitis, may be secondary to urinary tract infection, resolved at time of discharge Rash of bilateral upper extremities, possibly secondary to Rocephin, improved at time of discharge History of gastroesophageal reflux disease History of diverticulitis Essential hypertension Hypothyroidism Nurse practitioner note has been reviewed by physician. Signing provider agrees with the documented findings, assessment, and plan of care. Patient Condition at Discharge: Stable Plan - Discharge Summary Discharge Rx Participant: Yes New Discharge Prescriptions: New Amoxic-Pot Clav 875-125Mg [Augmentin 875-125] 1 tab PO Q12HR #14 tablet Continue metFORMIN HCL [Glucophage] 500 mg PO BID Esomeprazole Magnesium [NexIUM 24Hr] 20 mg PO DAILY amLODIPine BESYLATE [Norvasc] 5 mg PO DAILY Escitalopram [Lexapro] 10 mg PO DAILY Discontinued Nitrofurantoin Monohyd/M-Cryst [Macrobid] 100 mg PO Q12HR Discharge Medication List Esomeprazole Magnesium [NexIUM 24Hr] 20 mg PO DAILY 09/20/15 [History] metFORMIN HCL [Glucophage] 500 mg PO BID 09/20/15 [History] Escitalopram [Lexapro] 10 mg PO DAILY 01/24/17 [History] amLODIPine BESYLATE [Norvasc] 5 mg PO DAILY 01/24/17 [History] Amoxic-Pot Clav 875-125Mg [Augmentin 875-125] 1 tab PO Q12HR #14 tablet [Rx] Follow up Appointment(s)/Referral(s): Travis Hunt MD [Medical Doctor] - 1 Week Ozzy Stout DO [Primary Care Provider] - 1 Week Activity/Diet/Wound Care/Special Instructions: PT WANTS PNEUM. VACCINE AT ID Patient would like to follow up with Dr. Hunt for colonoscopy instead of Dr. Escobedo. Discharge Disposition: HOME SELF-CARE
[2017-01-27] MEDS ORDERED: INFLUENZA VACCINE (6 MOS+) 60 MCG/0.5 ML SYRINGE IM ONE (11:02)
[2017-01-27] MEDS ORDERED: PNEUMOCOCCAL VACC-PNEUMOVAX 23 25 MCG/0.5 ML VIAL IM ONE (11:16)
[2017-01-27 11:49] LABS: Glucose,Whole Blood 312 mg/dL (75-99)
--- NOTE | 2017-01-27 13:32 | PN ---
PROGRESS NOTE DATE OF SERVICE: 01/27/2017. REASON FOR FOLLOWUP: Colitis possibly infectious. INTERVAL HISTORY: The patient is afebrile. She is feeling better, breathing comfortably. Did have bowel movement, which was soft. No abdominal pain. No nausea, no vomiting, and the rash has decreased in intensity. She was given a dose of Unasyn. She had tolerated that without anything itching, rash or any difficulty breathing. EXAMINATION: Blood pressure 134/76 with a pulse of 77. Temperature 97.2. She is 93% on 2 L nasal cannula. General description is an elderly female up in the room in no distress. RESPIRATORY SYSTEM: Unlabored breathing. Clear to auscultation anteriorly. HEART: S1, S2. Regular rate and rhythm. ABDOMEN: Soft, no tenderness. LAB: Stool culture currently pending. DIAGNOSTIC IMPRESSION AND PLAN: Patient admitted to the hospital with abdominal pain, vomiting, diarrhea with evidence of colitis seen on the CT. The patient did have overall improvement on Rocephin and Flagyl; however, developed a rash. Currently, has tolerated Unasyn. She will be given a short course of oral Augmentin with close outpatient followup. MMODL / IJN: [id number] /
== END 2017-01-27 15:06 | disposition home or self-care (01) | DRG 392 ==
LOC: EC 08:52 → 4MS4W 12:18
PROVIDERS: ADMIT Family Medicine; ATTEND Family Medicine
DX: K52.9 Noninfective gastroenteritis and colitis, unspecified (principal); N39.0 Urinary tract infection, site not specified; I10 Essential (primary) hypertension; K57.92 Diverticulitis of intestine, part unspecified, without perforation or abscess without bleeding; K21.9 Gastro-esophageal reflux disease without esophagitis; M19.90 Unspecified osteoarthritis, unspecified site; E03.9 Hypothyroidism, unspecified; F41.9 Anxiety disorder, unspecified; F32.9 Major depressive disorder, single episode, unspecified; K64.9 Unspecified hemorrhoids; L27.0 Generalized skin eruption due to drugs and medicaments taken internally; T36.1X5A Adverse effect of cephalosporins and other beta-lactam antibiotics, initial encounter; Z80.8 Family history of malignant neoplasm of other organs or systems; Z79.899 Other long term (current) drug therapy; Z90.710 Acquired absence of both cervix and uterus; Z90.89 Acquired absence of other organs; Z79.84 Long term (current) use of oral hypoglycemic drugs
CPT/HCPCS: 36415; 71020; 74177; 80048; 80053; 81001; 83036; 83605; 85025; 85610; 85730; 87040; 87045; 87046; 87086; 87502; 90732; 94760; 96365; 96366; 96375; 99285

== ENCOUNTER → 2017-06-30 | Outpatient (CLI) | payer MEDICARE ==
--- NOTE | 2017-06-30 14:22 | XR ---
EXAMINATION TYPE: XR chest 2V DATE OF EXAM: 06/30/2017 COMPARISON: CXR from 01/24/2017. HISTORY: Cough. TECHNIQUE: Frontal and lateral views of the chest are obtained. FINDINGS: There is no focal air space opacity, pleural effusion, or pneumothorax seen. Underlying em physematous change is not excluded. The cardiac silhouette size is within normal limits. The osseo us structures are intact. IMPRESSION: No suspicious acute infiltrate.
== END | disposition home or self-care (01) ==
LOC: RADXRMAIN 13:29
PROVIDERS: ATTEND Otolaryngology
DX: R05 Cough (principal)
CPT/HCPCS: 71046

== ENCOUNTER 2017-08-22 12:02 | Emergency (ER) | payer MEDICARE ==
[2017-08-22 12:30] VITALS: RESP 18
[2017-08-22] MEDS ORDERED: FAMOTIDINE 20 MG/2 ML VIAL IV STA (13:06)
[2017-08-22] MEDS ORDERED: methylPREDNISolone SOD SUCCI 125 MG/2 ML VIAL IV STA (13:06)
[2017-08-22] MEDS ORDERED: diphenhydrAMINE 50 MG/ML 1 ML VIAL IVP STA (13:06)
--- NOTE | 2017-08-22 13:11 | ED ---
Allergic Reaction HPI - General Chief complaint: Allergic Reaction Stated complaint: allergic reaction to new medication Time Seen by Provider: 08/22/17 12:38 Source: patient, RN notes reviewed Mode of arrival: ambulatory Limitations: no limitations - History of Present Illness Initial Comments: This is a 76-year-old female history of urinary tract infection sepsis in the past who started having urinary symptoms 2 days ago saw her doctor placed on antibiotics started developing a rash. The rash is itchy she states. The antibiotic was changed he still has a rash that is itchy she also in addition this complains of any ancillary shakes and chills last night decreased oral intake feeling generally weak and also nonproductive cough. No chest or abdominal pain she has no other complaints this generalized weakness now and decreased oral intake. No definite lightheadedness. MD Complaint: allergic reaction, other - Related Data Home Medications Medication Instructions Recorded Confirmed Esomeprazole Magnesium [NexIUM 20 mg PO DAILY 09/20/15 08/22/17 24Hr] metFORMIN HCL [Glucophage] 500 mg PO BID 09/20/15 08/22/17 Escitalopram [Lexapro] 10 mg PO DAILY 01/24/17 08/22/17 amLODIPine BESYLATE [Norvasc] 5 mg PO DAILY 01/24/17 08/22/17 Previous Rx's Medication Instructions Recorded Famotidine [Pepcid] 20 mg PO BID #10 tablet 08/22/17 methylPREDNISolone Dose Pack 4 mg PO DIRECTED #21 package 08/22/17 [Medrol Dose Pack] Allergies Allergy/AdvReac Type Severity Reaction Status Date / Time ciprofloxacin [From Cipro] Allergy Rash/Hives Verified 08/22/17 12:30 Review of Systems ROS Statement: Those systems with pertinent positive or pertinent negative responses have been documented in the HPI. ROS Other: All systems not noted in ROS Statement are negative. Past Medical History Past Medical History: Chest Pain / Angina, GERD/Reflux, Hypertension, Osteoarthritis (OA), Thyroid Disorder Additional Past Medical History / Comment(s): diverticulitits, hemorrhoids, slight urinary incontinence,, Arthritis, thyroid nodules, prediabetic History of Any Multi-Drug Resistant Organisms: None Reported Past Surgical History: Adenoidectomy, Appendectomy, Bladder Surgery, Hysterectomy, Tonsillectomy Additional Past Surgical History / Comment(s): Colonoscopy, carpal tunnel release, bone spur removed from right foot. Past Anesthesia/Blood Transfusion Reactions: No Reported Reaction Past Psychological History: Anxiety Smoking Status: Never smoker Past Alcohol Use History: None Reported Past Drug Use History: None Reported - Past Family History Mother Family Medical History: No Reported History Son(s) Family Medical History: Cancer Additional Family Medical History / Comment(s): Brain CA/, 2nd son - pulmonary fibrosis - , 1 son in house fire. General Exam - General Exam Comments Initial Comments: Physical well-developed well-nourished awake alert oriented 3 female Limitations: no limitations General appearance: alert, anxious Head exam: Present: atraumatic, normocephalic, normal inspection Eye exam: Present: normal appearance, PERRL, EOMI. Absent: scleral icterus, conjunctival injection, periorbital swelling ENT exam: Present: mucous membranes dry Neck exam: Present: normal inspection. Absent: tenderness, meningismus, lymphadenopathy Respiratory exam: Present: normal lung sounds bilaterally. Absent: respiratory distress, wheezes, rales, rhonchi, stridor Cardiovascular Exam: Present: normal rhythm, tachycardia, normal heart sounds. Absent: systolic murmur, diastolic murmur, rubs, gallop, clicks GI/Abdominal exam: Present: soft, normal bowel sounds. Absent: distended, tenderness, guarding, rebound, rigid, bruit, pulsatile mass, hernia Extremities exam: Present: normal inspection, full ROM, normal capillary refill. Absent: tenderness, pedal edema, joint swelling, calf tenderness Back exam: Present: normal inspection Neurological exam: Present: alert, oriented X3, CN II-XII intact Psychiatric exam: Present: normal affect, anxious Skin exam: Present: warm, dry, intact, other (Neurologic erythematous rash over the extremities some on the trunk consistent with a drug reaction.). Absent: normal color, rash Course Vital Signs 08/22/17 08/22/17 12:27 14:50 Temperature 98.2 F Pulse Rate 111 H 95 Respiratory 18 18 Rate Blood Pressure 110/66 133/62 O2 Sat by Pulse 94 L 93 L Oximetry Medical Decision Making - Medical Decision Making The patient is so much improved at this time I did discuss Pf[employer] her family members she'll be discharged she is a continue with her Macrobid increase her oral fluids and treatment for the ALLERGIC reaction to Bactrim. - Lab Data Result diagrams: 08/22/17 13:30 06/09/18 13:30 Lab Results 08/22/17 08/22/17 08/22/17 Range/Units 13:30 13:30 13:30 WBC 7.4 (3.8-10.6) k/uL RBC 4.31 (3.80-5.40) m/uL Hgb 12.2 (11.4-16.0) gm/dL Hct 36.1 (34.0-46.0) % MCV 83.8 (80.0-100.0) fL MCH 28.4 (25.0-35.0) pg MCHC 33.8 (31.0-37.0) g/dL RDW 15.4 (11.5-15.5) % Plt Count 144 L (150-450) k/uL Neutrophils % 86 % Lymphocytes % 6 % Monocytes % 2 % Eosinophils % 5 % Basophils % 0 % Neutrophils # 6.3 (1.3-7.7) k/uL Lymphocytes # 0.5 L (1.0-4.8) k/uL Monocytes # 0.2 (0-1.0) k/uL Eosinophils # 0.4 (0-0.7) k/uL Basophils # 0.0 (0-0.2) k/uL Sodium 139 (137-145) mmol/L Potassium 3.9 (3.5-5.1) mmol/L Chloride 103 (98-107) mmol/L Carbon Dioxide 20 L (22-30) mmol/L Anion Gap 16 mmol/L BUN 31 H (7-17) mg/dL Creatinine 1.30 H (0.52-1.04) mg/dL Est GFR (CKD-EPI)AfAm 46 (>60 ml/min/1.73 sqM) Est GFR (CKD-EPI)NonAf 40 (>60 ml/min/1.73 sqM) Glucose 165 H (74-99) mg/dL Plasma Lactic Acid Reji (0.7-2.0) mmol/L Calcium 9.9 (8.4-10.2) mg/dL Magnesium 1.8 (1.6-2.3) mg/dL Total Bilirubin 0.6 (0.2-1.3) mg/dL AST 25 (14-36) U/L ALT 30 (9-52) U/L Alkaline Phosphatase 44 (38-126) U/L Total Creatine Kinase 130 (30-135) U/L CK-MB (CK-2) 1.3 (0.0-2.4) ng/mL CK-MB (CK-2) Rel Index 1.0 Troponin I <0.012 (0.000-0.034) ng/mL Total Protein 6.6 (6.3-8.2) g/dL Albumin 3.7 (3.5-5.0) g/dL Amylase 116 H (30-110) U/L Lipase 188 (23-300) U/L Urine Color Urine Appearance (Clear) Urine pH (5.0-8.0) Ur Specific [place] (1.001-1.035) Urine Protein (Negative) Urine Glucose (UA) (Negative) Urine Ketones (Negative) Urine Blood (Negative) Urine Nitrite (Negative) Urine Bilirubin (Negative) Urine Urobilinogen (<2.0) mg/dL Ur Leukocyte Esterase (Negative) Urine RBC (0-5) /hpf Urine WBC (0-5) /hpf Ur Squamous Epith Cells (0-4) /hpf Urine Bacteria (None) /hpf Hyaline Casts (0-2) /lpf Urine Mucus (None) /hpf 08/22/17 08/22/17 Range/Units 13:30 15:00 WBC (3.8-10.6) k/uL RBC (3.80-5.40) m/uL Hgb (11.4-16.0) gm/dL Hct (34.0-46.0) % MCV (80.0-100.0) fL MCH (25.0-35.0) pg MCHC (31.0-37.0) g/dL RDW (11.5-15.5) % Plt Count (150-450) k/uL Neutrophils % % Lymphocytes % % Monocytes % % Eosinophils % % Basophils % % Neutrophils # (1.3-7.7) k/uL Lymphocytes # (1.0-4.8) k/uL Monocytes # (0-1.0) k/uL Eosinophils # (0-0.7) k/uL Basophils # (0-0.2) k/uL Sodium (137-145) mmol/L Potassium (3.5-5.1) mmol/L Chloride (98-107) mmol/L Carbon Dioxide (22-30) mmol/L Anion Gap mmol/L BUN (7-17) mg/dL Creatinine (0.52-1.04) mg/dL Est GFR (CKD-EPI)AfAm (>60 ml/min/1.73 sqM) Est GFR (CKD-EPI)NonAf (>60 ml/min/1.73 sqM) Glucose (74-99) mg/dL Plasma Lactic Acid Reji 1.5 (0.7-2.0) mmol/L Calcium (8.4-10.2) mg/dL Magnesium (1.6-2.3) mg/dL Total Bilirubin (0.2-1.3) mg/dL AST (14-36) U/L ALT (9-52) U/L Alkaline Phosphatase (38-126) U/L Total Creatine Kinase (30-135) U/L CK-MB (CK-2) (0.0-2.4) ng/mL CK-MB (CK-2) Rel Index Troponin I (0.000-0.034) ng/mL Total Protein (6.3-8.2) g/dL Albumin (3.5-5.0) g/dL Amylase (30-110) U/L Lipase (23-300) U/L Urine Color Yellow Urine Appearance Cloudy H (Clear) Urine pH 5.5 (5.0-8.0) Ur Specific [place] 1.007 (1.001-1.035) Urine Protein Trace H (Negative) Urine Glucose (UA) Negative (Negative) Urine Ketones 1+ H (Negative) Urine Blood Negative (Negative) Urine Nitrite Negative (Negative) Urine Bilirubin Negative (Negative) Urine Urobilinogen <2.0 (<2.0) mg/dL Ur Leukocyte Esterase Moderate H (Negative) Urine RBC 2 (0-5) /hpf Urine WBC 15 H (0-5) /hpf Ur Squamous Epith Cells 3 (0-4) /hpf Urine Bacteria Rare H (None) /hpf Hyaline Casts 29 H (0-2) /lpf Urine Mucus Rare H (None) /hpf - Radiology Data Radiology results: report reviewed (I did review the imaging and reports no definite acute findings.), image reviewed Disposition Clinical Impression: Allergic reaction, Urinary tract infection, Dehydration Disposition: HOME SELF-CARE Condition: Good Instructions: General Allergic Reaction (ED), Dehydration (ED), Urinary Tract Infection in Women (ED) Additional Instructions: Continue with the Macrobid until it is finished, increase oral fluids. Avoid hot environments. [id number] Benadryl every 6 hours as needed when necessary Prescriptions: Famotidine [Pepcid] 20 mg PO BID #10 tablet methylPREDNISolone Dose Pack [Medrol Dose Pack] 4 mg PO DIRECTED #21 package Is patient prescribed a controlled substance at d/c from ED?: No Referrals: Ozzy Stout DO [Primary Care Provider] - 1-2 days
[2017-08-22] MEDS ORDERED: SODIUM CHLORIDE 0.9% 1,000 ML IV STA (13:12)
--- NOTE | 2017-08-22 13:53 | XR ---
EXAMINATION TYPE: XR KUB DATE OF EXAM: 08/22/2017 1:49 PM CLINICAL HISTORY: Vomiting and abdominal pain TECHNIQUE: Single upright image of the abdomen is obtained. COMPARISON: None. FINDINGS: Scattered gas is seen in non-distended small bowel loops. Gas and fecal material is seen in non-distended colon. There is no visceromegaly, pneumoperitoneum, or abnormal calcification apprecia cassie. The lung bases are clear and the osseous structures are intact. Moderate degenerative changes of the spine are noted. IMPRESSION: Nonobstructive bowel gas pattern.
--- NOTE | 2017-08-22 13:53 | XR ---
EXAMINATION TYPE: XR chest 2V DATE OF EXAM: 08/22/2017 COMPARISON: 06/30/2017 HISTORY: Cough TECHNIQUE: Frontal and lateral views of the chest are obtained. FINDINGS: There is no focal air space opacity, pleural effusion, or pneumothorax seen. Minimal left basilar subsegmental atelectasis is seen. Pulmonary per inflation represents underlying COPD. There i s generalized osseous demineralization. The cardiac silhouette size is within normal limits. The os seous structures are intact. IMPRESSION: Minimal left basilar subsegmental atelectasis and radiographic sequela of COPD.
[2017-08-22 13:54] LABS: Basophils % (A) 0 %; Eosinophils # (A) 0.4 k/uL (0-0.7); Eosinophils % (A) 5 %; HCT 36.1 % (34.0-46.0); HGB 12.2 gm/dL (11.4-16.0); Lymphocytes # (A) 0.5 k/uL (1.0-4.8); Lymphocytes % (A) 6 %; MCH 28.4 pg (25.0-35.0); MCHC 33.8 g/dL (31.0-37.0); MCV 83.8 fL (80.0-100.0); Mean Platelet Volume 7.4; Monocytes # (A) 0.2 k/uL (0-1.0); Monocytes % (A) 2 %; Neutrophils # (A) 6.3 k/uL (1.3-7.7); Neutrophils % (A) 86 %; Platelet Count 144 k/uL (150-450); RBC 4.31 m/uL (3.80-5.40); RDW 15.4 % (11.5-15.5); WBC 7.4 k/uL (3.8-10.6)
[2017-08-22 14:05] LABS: Albumin 3.7 g/dL (3.5-5.0); Calcium 9.9 mg/dL (8.4-10.2); Magnesium 1.8 mg/dL (1.6-2.3); Potassium 3.9 mmol/L (3.5-5.1); Total Bilirubin 0.6 mg/dL (0.2-1.3); Total Protein 6.6 g/dL (6.3-8.2)
[2017-08-22 14:27] LABS: Creatine Kinase 130 U/L (30-135)
[2017-08-22 14:40] LABS: Creatine Kinase MB 1.3 ng/mL (0.0-2.4); Troponin I <0.012 ng/mL (0.000-0.034)
[2017-08-22 15:14] LABS: Appearance,Urine Cloudy (Clear); Bacteria,Urine Rare /hpf; Bilirubin,Urine Negative (Negative); Blood,Urine Negative (Negative); Color,Urine Yellow; Glucose,Urine (UA) Negative (Negative); Hyaline Casts,Urine 29 /lpf (0-2); Ketones,Urine 1+ (Negative); Leukocyte Esterase,Urine Moderate (Negative); Mucus,Urine Rare /hpf; Nitrite,Urine Negative (Negative); PH, Urine 5.5 (5.0-8.0); Protein,Urine Trace (Negative); RBC,Urine 2 /hpf (0-5); Specific Gravity,Urine 1.007 (1.001-1.035); Squamous Epithelial Cell,Urine 3 /hpf (0-4); Urobilinogen,Urine <2.0 mg/dL (<2.0); WBC,Urine 15 /hpf (0-5)
[2017-08-22 16:14] VITALS: BP 127/66; PULSE 89; TEMP 98.3
== END 2017-08-22 16:10 | disposition home or self-care (01) ==
LOC: EC 12:02
DX: N39.0 Urinary tract infection, site not specified (principal); T37.0X5A Adverse effect of sulfonamides, initial encounter; E86.0 Dehydration; K21.9 Gastro-esophageal reflux disease without esophagitis; I10 Essential (primary) hypertension; F41.9 Anxiety disorder, unspecified; Z79.84 Long term (current) use of oral hypoglycemic drugs; Z79.899 Other long term (current) drug therapy; Z88.1 Allergy status to other antibiotic agents
CPT/HCPCS: 36415; 80053; 82150; 82550; 82553; 83605; 83690; 83735; 84484; 85025; 81001; 87040; 71046; 74018; 99283; 96374; 96375 ×2; 96361; J1200; J2930

== ENCOUNTER 2017-10-19 08:48 | Emergency (ER) | payer MEDICARE ==
[2017-10-19] MEDS ORDERED: DIPH,PERTUS(ACELL)TETVAC-LF 0.5 ML VIAL IM ONE (09:00)
--- NOTE | 2017-10-19 09:02 | ED ---
General Adult HPI - General Chief complaint: Wound/Laceration Stated complaint: Foot laceration Time Seen by Provider: 10/19/17 08:56 Source: patient, RN notes reviewed Mode of arrival: wheelchair Limitations: no limitations - History of Present Illness Initial comments: Patient 77-year-old female presents emergency room today with a chief complaint of injury to the left great toe. She states she was trying to open up a door with a navarrete when somebody came out of the same door hitting her foot. She states she had flip-flops on. Cause a laceration at top of the left great toe. Patient states that tetanus was approximately 10 years ago. Patient does admit to pain locally with this cut. Have dental time stopping the bleeding. Bleeding has stopped currently. Patient states not on a blood thinner. Denies any other complaints. - Related Data Home Medications Medication Instructions Recorded Confirmed metFORMIN HCL [Glucophage] 500 mg PO BID 09/20/15 10/19/17 Escitalopram [Lexapro] 10 mg PO DAILY 01/24/17 10/19/17 amLODIPine BESYLATE [Norvasc] 5 mg PO DAILY 01/24/17 10/19/17 Ibuprofen [Motrin] 800 mg PO Q8H PRN 10/19/17 10/19/17 Previous Rx's Medication Instructions Recorded Famotidine [Pepcid] 20 mg PO BID #10 tablet 08/22/17 Allergies Allergy/AdvReac Type Severity Reaction Status Date / Time ciprofloxacin [From Cipro] Allergy Rash/Hives Verified 10/19/17 09:53 Review of Systems ROS Statement: Those systems with pertinent positive or pertinent negative responses have been documented in the HPI. ROS Other: All systems not noted in ROS Statement are negative. Past Medical History Past Medical History: Chest Pain / Angina, Diabetes Mellitus, GERD/Reflux, Hypertension, Osteoarthritis (OA), Thyroid Disorder Additional Past Medical History / Comment(s): diverticulitits, hemorrhoids, slight urinary incontinence,, Arthritis, thyroid nodules, prediabetic History of Any Multi-Drug Resistant Organisms: None Reported Past Surgical History: Adenoidectomy, Appendectomy, Bladder Surgery, Hysterectomy, Tonsillectomy Additional Past Surgical History / Comment(s): Colonoscopy, carpal tunnel release, bone spur removed from right foot. Past Anesthesia/Blood Transfusion Reactions: No Reported Reaction Past Psychological History: Anxiety Smoking Status: Never smoker Past Alcohol Use History: None Reported Past Drug Use History: None Reported - Past Family History Mother Family Medical History: No Reported History Son(s) Family Medical History: Cancer Additional Family Medical History / Comment(s): Brain CA/, 2nd son - pulmonary fibrosis - , 1 son in house fire. General Exam - General Exam Comments Initial Comments: General: The patient is awake and alert, in no distress, and does not appear acutely ill. Neck: The neck is supple, there is no tenderness or JVD. Musculoskeletal: Patient shows good range of motion. No tenderness to the left ankle, or left foot. Mildly tender over the first digit of the left foot on palpation. Sensations intact. Pedal pulse 2+. Neurological: A&O x 3. CN II-XII intact, There are no obvious motor or sensory deficits. Coordination appears grossly intact. Speech is normal. Skin: Skin is warm. Linear laceration running horizontally the top of the left great toe. No active bleeding currently. Measures approximate 1 cm. Psychiatric: Normal mood and affect. Limitations: no limitations Course Vital Signs 10/19/17 08:52 Temperature 98.3 F Pulse Rate 97 Respiratory 20 Rate Blood Pressure 159/85 O2 Sat by Pulse 96 Oximetry Procedures - Procedures Initial comment: Patient's right great toe was cleaned in the emergency room with saline. Dermabond was used to approximate and close wound. Patient tolerated well. Medical Decision Making - Medical Decision Making Since x-ray negative for any acute patient. Patient's laceration was closed in the emergency room with Dermabond. Patient's tetanus updated. Disposition Clinical Impression: Laceration, Toe contusion Disposition: HOME SELF-CARE Condition: Good Instructions: Laceration (ED) Additional Instructions: Please allow the glue to follow up on its own over the next 3-5 days. Please return here to the emergency room if any symptoms increase worsen or for any other concerns. Is patient prescribed a controlled substance at d/c from ED?: No Referrals: Ozzy Stout DO [Primary Care Provider] - 1-2 days Time of Disposition: 10:18
--- NOTE | 2017-10-19 09:18 | XR ---
EXAMINATION TYPE: XR foot complete LT DATE OF EXAM: 10/19/2017 COMPARISON: NONE HISTORY: 77-year-old female laceration anterior left great toe, pain TECHNIQUE: 3 views FINDINGS: Incidental bone island within the first distal phalanx. No retained radiopaque foreign body seen. No acute fracture, subluxation, or dislocation. Small plantar calcaneal spur. Some ossification along th e Achilles tendon suggests chronic tendinopathy and old injury. IMPRESSION: 1. No acute osseous abnormality seen. 2. 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 3. Small plantar calcaneal spur.
[2017-10-19] MEDS: LIDOCAINE 1% INJ 10MG/ML (20 ML MDV) SQ STA ×2 (09:39→11:01)
[2017-10-19] MEDS ORDERED: TOPICAL SKIN ADHESIVE 1 EACH AMP TOPICAL ONE (10:07)
[2017-10-19 11:25] VITALS: BP 145/78; PULSE 84; RESP 18; TEMP 98.1
== END 2017-10-19 11:04 | disposition home or self-care (01) ==
LOC: EC 08:48
DX: S91.112A Laceration without foreign body of left great toe without damage to nail, initial encounter (principal); E11.9 Type 2 diabetes mellitus without complications; I10 Essential (primary) hypertension; F41.9 Anxiety disorder, unspecified; Z23 Encounter for immunization; Z79.84 Long term (current) use of oral hypoglycemic drugs; Z79.899 Other long term (current) drug therapy; Z88.1 Allergy status to other antibiotic agents; W22.8XXA Striking against or struck by other objects, initial encounter; Y92.009 Unspecified place in unspecified non-institutional (private) residence as the place of occurrence of the external cause
CPT/HCPCS: 12001; 90471; 90715; 99283

== ENCOUNTER → 2017-11-02 | Outpatient (CLI) | payer MEDICARE ==
[2017-11-02 15:26] LABS: Blood Urea Nitrogen 21 mg/dL (7-17)
--- NOTE | 2017-11-02 16:16 | CT ---
EXAMINATION TYPE: CT soft tissue neck w con DATE OF EXAM: 11/02/2017 COMPARISON: None HISTORY: left neck/left ear pain CT DLP: 350.7 mGycm CONTRAST: Patient injected with 100 mL of Isovue 300. TECHNIQUE: Axial images at 3 mm thick sections. Reconstructed images in the coronal plane and sagitt al plane are reviewed. FINDINGS: Limited CT sections are obtained the lung apices. The lung apices appear clear. CT neck: The torus tubarius and fossa of Rosenmuller are normal. Fiscal Agent spaces are normal. Para nasal sinuses are clear. Parotid glands appear normal and symmetrical. The right submandibular gland is larger than the left. The left may be slightly atrophic. Parapharyngeal spaces are normal. No suspicious adenopathy is janes dent. The hypopharynx appears within normal limits. Vocal cord level appear symmetrical. There is a 1.0 cm hypodensity with a hyperdense center within the anterior right mid thyroid lobe. Osseous structures are normal. Carotid arteries and vertebral arteries as visualized appear unremarka ble. Mastoid air cells are clear. Left mastoid air cells are underpneumatized. Small mediastinal lymph nodes are present. Lung windows within the [id number] are clear. IMPRESSIONS: 1. No suspicious changes to account for left ear pain 2. Left submandibular gland appears somewhat atrophic compared to the right.
== END | disposition home or self-care (01) ==
LOC: RADCTMAIN 14:51
PROVIDERS: ATTEND Otolaryngology
DX: K11.0 Atrophy of salivary gland (principal); M54.2 Cervicalgia
CPT/HCPCS: 82565; 84520; 70491; 36415; Q9967

== ENCOUNTER 2017-11-25 15:54 | Emergency (ER) | payer MEDICARE ==
[2017-11-25 16:07] VITALS: BP 147/92; PULSE 87; RESP 18; TEMP 98.1
--- NOTE | 2017-11-25 16:32 | ED ---
General Adult HPI - General Chief complaint: Extremity Injury, Upper Stated complaint: Fall-Hand Injury Time Seen by Provider: 11/25/17 16:09 Source: patient, RN notes reviewed Mode of arrival: ambulatory Limitations: no limitations - History of Present Illness Initial comments: Patient is a 77-year-old female with complaint of right hand pain. Patient states she was climbing the steps of her house while carrying a pack of lee when she tripped and hit her right hand against the wall. She has used ice on her hand. Denies hitting her head, loss of consciousness, numbness, tingling, or any other injuries. Denies shortness of breath. Denies use of blood thinners. - Related Data Home Medications Medication Instructions Recorded Confirmed metFORMIN HCL [Glucophage] 500 mg PO BID 09/20/15 11/25/17 amLODIPine BESYLATE [Norvasc] 5 mg PO DAILY 01/24/17 11/25/17 Ibuprofen [Motrin] 800 mg PO Q8H PRN 10/19/17 11/25/17 Esomeprazole Magnesium [NexIUM] 40 mg PO DAILY 11/25/17 11/25/17 Vit C/E/Zn/Coppr/Lutein/Zeaxan 1 cap PO BID 11/25/17 11/25/17 [Preservision Areds 2 Softgel] Previous Rx's Medication Instructions Recorded Famotidine [Pepcid] 20 mg PO BID #10 tablet 08/22/17 Allergies Allergy/AdvReac Type Severity Reaction Status Date / Time ciprofloxacin [From Cipro] Allergy Rash/Hives Verified 11/25/17 16:30 Sulfa (Sulfonamide Allergy Rash/Hives Verified 11/25/17 16:30 Antibiotics) Review of Systems ROS Statement: Those systems with pertinent positive or pertinent negative responses have been documented in the HPI. ROS Other: All systems not noted in ROS Statement are negative. Past Medical History Past Medical History: Chest Pain / Angina, Diabetes Mellitus, GERD/Reflux, Hypertension, Osteoarthritis (OA), Thyroid Disorder Additional Past Medical History / Comment(s): diverticulitits, hemorrhoids, slight urinary incontinence,, Arthritis, thyroid nodules, prediabetic History of Any Multi-Drug Resistant Organisms: None Reported Past Surgical History: Adenoidectomy, Appendectomy, Bladder Surgery, Hysterectomy, Tonsillectomy Additional Past Surgical History / Comment(s): Colonoscopy, carpal tunnel release, bone spur removed from right foot. Past Anesthesia/Blood Transfusion Reactions: No Reported Reaction Past Psychological History: Anxiety Smoking Status: Never smoker Past Alcohol Use History: Occasional Past Drug Use History: None Reported - Past Family History Mother Family Medical History: No Reported History Son(s) Family Medical History: Cancer Additional Family Medical History / Comment(s): Brain CA/, 2nd son - pulmonary fibrosis - , 1 son in house fire. General Exam - General Exam Comments Initial Comments: General: The patient is awake and alert, in no distress, and does not appear acutely ill. Neck: The neck is supple, there is no tenderness. Cardiovascular: There is a regular rate and rhythm. No murmur, rub or gallop is appreciated. Capillary refill less than 3 seconds bilateral upper extremities. Radial pulses 2+ bilaterally. Respiratory: Lungs are clear to auscultation, respirations are non-labored, breath sounds are equal. No wheezes, stridor, rales, or rhonchi. Musculoskeletal: Tenderness to palpation with some swelling over metacarpal heads of digits 4 and 5 on the right hand. Tenderness with movement of the right hand. Sensation intact. Range of motion of right fingers decreased compared to left. Full wrist ROM bilaterally. Neurological: A&O x 3. There are no obvious motor or sensory deficits. Coordination appears grossly intact. Speech is normal. Skin: Skin is warm and dry and no rashes or lesions are noted. Psychiatric: Normal mood and affect. Limitations: no limitations Course Vital Signs 11/25/17 16:02 Temperature 98.1 F Pulse Rate 87 Respiratory 18 Rate Blood Pressure 147/92 O2 Sat by Pulse 94 L Oximetry Procedures - Orthopedic Splinting/Casting Injury #1 Side: right Upper Extremity Injury Location: short arm Upper Extremity Immobilizer: ulnar gutter, synthetic pre-padded splint Additional Comments: Tolerated procedure well. Neurovascularly intact. Medical Decision Making - Medical Decision Making Patient came in with right hand pain. X-ray revealed an oblique fracture of the midshaft of the fourth metacarpal with separation up to 5 mm of the fragments with normal alignment. An ulnar gutter splint was applied. Recommended patient to follow up with orthopedics tomorrow. Also instructed to continue using ice and to elevate the extremity. Disposition Clinical Impression: Fracture of hand Disposition: HOME SELF-CARE Instructions: Hand Fracture (ED) Is patient prescribed a controlled substance at d/c from ED?: No Referrals: Ozzy Stout DO [Primary Care Provider] - 1-2 days Handy Barrios MD [STAFF PHYSICIAN] - 1-2 days Time of Disposition: 17:40
--- NOTE | 2017-11-25 16:50 | XR ---
EXAMINATION TYPE: XR hand complete RT DATE OF EXAM: 11/25/2017 COMPARISON: NONE HISTORY: Right hand history pain. Comparison none. TECHNIQUE: 3 views FINDINGS: There is an oblique fracture of the midshaft of the fourth metacarpal. There is separation up to 5 mm of the fragments. There is normal alignment. There is some spurring at the IP joints. Ther e is mild spurring at the first carpometacarpal joint. IMPRESSION: Acute fracture fourth metacarpal.
== END 2017-11-25 17:42 | disposition home or self-care (01) ==
LOC: EC 15:54
DX: S62.324A Displaced fracture of shaft of fourth metacarpal bone, right hand, initial encounter for closed fracture (principal); I10 Essential (primary) hypertension; K21.9 Gastro-esophageal reflux disease without esophagitis; Z88.1 Allergy status to other antibiotic agents; Z88.2 Allergy status to sulfonamides; Z79.84 Long term (current) use of oral hypoglycemic drugs; Z79.899 Other long term (current) drug therapy; Z98.890 Other specified postprocedural states; W01.198A Fall on same level from slipping, tripping and stumbling with subsequent striking against other object, initial encounter; Y93.89 Activity, other specified; Y92.008 Other place in unspecified non-institutional (private) residence as the place of occurrence of the external cause
CPT/HCPCS: 29125; 99283

== ENCOUNTER → 2018-05-25 | Outpatient (CLI) | payer MEDICARE ==
--- NOTE | 2018-05-25 15:37 | US ---
EXAMINATION TYPE: US thyroid st tissue head/neck DATE OF EXAM: 05/25/2018 COMPARISON: US, CT CLINICAL HISTORY: E04.1 Thyroid nodule; coughing GLAND SIZE: Right Lobe: 3.6 x 1.5 x 1.6 cm Overall Parenchyma: heterogenous Left Lobe: 3.5 x 1.2 x 1.3 cm Overall Parenchyma: heterogeneous Isthmus Thickness: 0.3 cm NODULES RIGHT: # of nodules measured on right: 2 largest of multiple 1. 1.2 X 0.8 x 1.0 cm hypoechoic mixed nodule at the mid lateral pole with poorly defined margins. This nodule is taller than wide and shows no intranodular vascularity. 2. 1.2 X 1.1 x 0.9 cm hypoechoic mixed nodule at the mid lateral pole with well-defined margins. Th is nodule is wider than tall and shows intranodular vascularity. Prior size: 1.2 x 0.6 x 0.4 cm LEFT: # of nodules measured on left: 1 of 2 small cysts 1. 0.4 X 0.3 x 0.3 cm hypoechoic cystic nodule at the lower pole with well-defined margins. This n odule is wide as is tall and shows no intranodular vascularity. ISTHMUS: # of nodules measured in the isthmus: 0 Bilateral neck scanned: superior to right neck a lymph node is seen = 1.1 x 0.9 x 0.6cm (A/P cortical thickness = 0.3cm). IMPRESSION: Thyroid tissue is heterogeneous correlate for thyroiditis. Stable appearing right-sided thyroid nodul e with new subcentimeter left thyroid nodule. Shotty adenopathy noted in the right neck.
== END | disposition home or self-care (01) ==
LOC: RADUSWWP 14:42
PROVIDERS: ATTEND Otolaryngology
DX: E04.1 Nontoxic single thyroid nodule (principal); R59.0 Localized enlarged lymph nodes
CPT/HCPCS: 76536

== ENCOUNTER → 2018-08-18 | Outpatient (CLI) | payer MEDICARE ==
--- NOTE | 2018-08-18 15:39 | MR ---
MRI CERVICAL SPINE: CLINICAL HISTORY: Cervicalgia per order. Headaches with neck pain for 8 months causing pain or weakne ss into left arm and fingers per patient. TECHNIQUE: Multiplanar, multisequence imaging of the cervical spine is performed without IV contrast. COMPARISON: CT neck November 02, 2017 FINDINGS: Coronal images redemonstrates slight levoconvex scoliotic curvature centered in the upper t horacic spine. Sagittal images of the cervical spine show the craniocervical junction to remain withi n normal limits. The cervical and upper thoracic spinal cord is normal in course, caliber, and signa l. Vertebral alignment is slightly straightened on sagittal images with slight grade 1 retrolisthesi s of C5 on C6 redemonstrated. Mild disc space narrowing C5-C6 level is seen otherwise the vertebral b sree and intravertebral disk heights are normal. The bone marrow signal intensity is within normal li mits. Axial images show the C2-C3 level to appear within normal limits. Axial images at C3-C4 level shows central disc protrusion effacing anterior thecal sac on axial image 36, bilateral neural foramina are patent. Axial images at C4-C5 level show broad-based left paracentral disc protrusion effacing anterolateral thecal sac with asymmetric mild left-sided neural foraminal narrowing. Axial images at C5-C6 level show spondylolisthesis and broad-based disc protrusion mildly effacing an terior thecal sac and causing [id number] bilateral neural foraminal narrowing. Axial images at C6-C7 level show right paracentral disc protrusion effacing anterolateral thecal sac and causing asymmetric mild right-sided neural foraminal narrowing. Axial images at C7-T1 level appear within normal limits. IMPRESSION: Multilevel degenerative changes most prominent C4-C5 and C5-C6 level as detailed above.
== END | disposition home or self-care (01) ==
LOC: RADMRIMAIN 14:27
PROVIDERS: ATTEND Psychiatry & Neurology Neurology
DX: M47.812 Spondylosis without myelopathy or radiculopathy, cervical region (principal)
CPT/HCPCS: 72141

== ENCOUNTER → 2019-01-17 | Outpatient (CLI) | payer MEDICARE ==
[2019-01-17 21:43] LABS: T4, Free (Free Thyroxine) 0.8 ng/dL (0.80-1.80)
== END | disposition home or self-care (01) ==
LOC: LABWHC1 12:01
PROVIDERS: ATTEND Internal Medicine Endocrinology, Diabetes & Metabolism
DX: E04.2 Nontoxic multinodular goiter (principal)
CPT/HCPCS: 36415; 84439; 84443

== ENCOUNTER → 2019-03-31 | Outpatient (CLI) | payer MEDICARE | END | disposition home or self-care (01) | LOC: LABWHC1 09:03 | PROVIDERS: ATTEND Internal Medicine Endocrinology, Diabetes & Metabolism | DX: E04.2 Nontoxic multinodular goiter (principal) | CPT/HCPCS: 36415; 84439; 84443 ==

== ENCOUNTER → 2019-06-02 | Outpatient (CLI) | payer MEDICARE ==
--- NOTE | 2019-06-02 15:09 | US ---
EXAMINATION TYPE: US thyroid st tissue head/neck DATE OF EXAM: 06/02/2019 COMPARISON: US 05/25/2018 CLINICAL HISTORY: E04.2 Nontoxic multinodular goiter. GLAND SIZE: Right Lobe: 3.5 x 1.1 x 1.7 cm Overall Parenchyma: homogenous Left Lobe: 2.6 x 0.9 x 0.9 cm Overall Parenchyma: homogeneous Isthmus Thickness: 0.2 cm NODULES RIGHT: # of nodules measured on right: 1 1. 0.9 X 0.8 x 0.9 cm hypoechoic solid nodule at the mid pole with well-defined margins; . This no dule is wider than tall and shows intranodular vascularity. Prior size: 1.2 x 0.9 x 1.1 cm LEFT: # of nodules measured on left: 0 ISTHMUS: # of nodules measured in the isthmus: 0 Bilateral neck scanned, no evidence of lymphadenopathy. Nodule as described. IMPRESSION: The previously seen right thyroid nodule measures slightly smaller in size than the prior . No new nodules are seen.
== END | disposition home or self-care (01) ==
LOC: RADUSWWP 14:39
PROVIDERS: ATTEND Internal Medicine Endocrinology, Diabetes & Metabolism
DX: E04.1 Nontoxic single thyroid nodule (principal)
CPT/HCPCS: 76536

== ENCOUNTER → 2019-09-16 | Outpatient (CLI) | payer MEDICARE ==
[2019-09-16 15:20] LABS: T4, Free (Free Thyroxine) 1.4 ng/dL (0.80-1.80)
== END | disposition home or self-care (01) ==
LOC: LABWHC1 09:40
PROVIDERS: ATTEND Internal Medicine Endocrinology, Diabetes & Metabolism
DX: E04.1 Nontoxic single thyroid nodule (principal)
CPT/HCPCS: 36415; 84439; 84443

== ENCOUNTER → 2019-12-15 | Outpatient (CLI) | payer MEDICARE ==
--- NOTE | 2019-12-15 10:15 | FL ---
ESOPHOGRAM. HISTORY: Dysphagia Esophagram was performed per the air contrast technique. The patient swallowed barium and effervesce nt crystals without difficulty or delay. Esophageal peristalsis and motility appear to be within normal limits. There is no evidence for filling defect, mass or diverticulum. No hiatal hernia seen. Subsequently single contrast cervical esophagram was performed which fails demonstrate evidence for a spiration penetration or mass. IMPRESSION: Unremarkable study.
== END | disposition home or self-care (01) ==
LOC: RADUSWWP 08:58
PROVIDERS: ATTEND Otolaryngology
DX: R13.10 Dysphagia, unspecified (principal)
CPT/HCPCS: 74220

== ENCOUNTER → 2020-02-16 | Outpatient (CLI) | payer MEDICARE ==
--- NOTE | 2020-02-16 12:03 | XR ---
EXAMINATION TYPE: XR lumbar spine 2 or 3V DATE OF EXAM: 02/16/2020 Comparison: 01/28/2014 Clinical History: 79-year-old female with low back and left hip pain, M54.10 Findings: Gentle levoconvex curvature of the lumbar spine. 5 lumbar type vertebral bodies. Moderate degenerativ e disc disease throughout with endplate spondylosis disc space narrowing. Vertebral body heights are preserved. Alignment is maintained. Hypertrophic facet arthropathy throughout. Impression: Moderate degenerative disc disease and hypertrophic facet arthropathy throughout. No vertebral compre ssion collapse or malalignment. Degenerative changes have progressed from 2013.
--- NOTE | 2020-02-16 12:05 | XR ---
EXAMINATION TYPE: XR Hip Complete LT DATE OF EXAM: 02/16/2020 COMPARISON: NONE HISTORY: 79-year-old female M54.10 low back and left hip pain TECHNIQUE: 2 views FINDINGS: Minimal marginal spurring at the femoral head neck junction. Overall hip joint space is maintained. E ither phlebolith or dystrophic calcification at the midline lower pelvis. Unchanged from the CT of . No acute fracture, subluxation, or dislocation. IMPRESSION: Only minimal degenerative spurring at the left hip. No acute osseous abnormality seen.
== END | disposition home or self-care (01) ==
LOC: RADXRMAIN 09:55
PROVIDERS: ATTEND Family Medicine
DX: M51.16 Intervertebral disc disorders with radiculopathy, lumbar region (principal); M47.26 Other spondylosis with radiculopathy, lumbar region; M25.752 Osteophyte, left hip
CPT/HCPCS: 72100; 73502

== ENCOUNTER → 2020-04-12 | Outpatient (CLI) | payer MEDICARE ==
--- NOTE | 2020-04-12 13:01 | US ---
EXAMINATION TYPE: US thyroid st tissue head/neck DATE OF EXAM: 04/12/2020 COMPARISON: 06/02/2019 CLINICAL HISTORY: 79-year-old female E04.2 Nontoxic multinodular goiter. Thyroid nodule TECHNIQUE: Multiple sonographic images of the thyroid gland are obtained. FINDINGS: GLAND SIZE: Right Lobe: 3.0 x 1.3 x 1.4 cm Overall Parenchyma: homogenous Left Lobe: 2.6 x 1.3 x 1.1 cm Overall Parenchyma: homogeneous Isthmus Thickness: .3 cm NODULES RIGHT: # of nodules measured on right: 1 1. .9 X .7 x .8 cm round, solid, hypoechoic nodule at the mid pole, which is wider than tall, with smooth margins, without echogenic foci. Prior size: .9 x .8 x .9 cm LEFT: # of nodules measured on left: 0 ISTHMUS: # of nodules measured in the isthmus: 0 Bilateral neck scanned, no evidence of lymphadenopathy. IMPRESSION: Stable solitary 9 mm solid nodule at the right midpole.
== END | disposition home or self-care (01) ==
LOC: RADUSWWP 10:39
PROVIDERS: ATTEND Internal Medicine Endocrinology, Diabetes & Metabolism
DX: E04.1 Nontoxic single thyroid nodule (principal); E03.8 Other specified hypothyroidism
CPT/HCPCS: 76536; 84443

== ENCOUNTER → 2021-09-06 | Outpatient (CLI) | payer MEDICARE | END | disposition home or self-care (01) | LOC: LABWHC1 08:34 | PROVIDERS: ATTEND Dermatology MOHS-Micrographic Surgery | DX: R20.2 Paresthesia of skin (principal) | CPT/HCPCS: 36415; 86038 ==

== ENCOUNTER → 2021-11-28 | Outpatient (CLI) | payer MEDICARE ==
[2021-11-29 01:03] LABS: T4, Free (Free Thyroxine) 0.77 ng/dL (0.800-1.800)
== END | disposition home or self-care (01) ==
LOC: LABWHC1 15:32
PROVIDERS: ATTEND Internal Medicine Endocrinology, Diabetes & Metabolism
DX: E04.2 Nontoxic multinodular goiter (principal)
CPT/HCPCS: 36415; 84439; 84443

== ENCOUNTER → 2022-07-07 | Outpatient (CLI) | payer MEDICARE ==
[2022-07-07 23:29] LABS: T4, Free (Free Thyroxine) 1.08 ng/dL (0.800-1.800)
== END | disposition home or self-care (01) ==
LOC: LABWHC1 13:33
PROVIDERS: ATTEND Internal Medicine Endocrinology, Diabetes & Metabolism
DX: E04.2 Nontoxic multinodular goiter (principal); E03.8 Other specified hypothyroidism
CPT/HCPCS: 36415; 84439; 84443

== ENCOUNTER → 2022-07-24 | Outpatient (CLI) | payer MEDICARE ==
[2022-07-24 16:06] LABS: T4, Free (Free Thyroxine) 1.1 ng/dL (0.800-1.800)
== END | disposition home or self-care (01) ==
LOC: LABWHC1 08:52
PROVIDERS: ATTEND Internal Medicine Endocrinology, Diabetes & Metabolism
DX: E04.2 Nontoxic multinodular goiter (principal)
CPT/HCPCS: 36415; 84439; 84443

== ENCOUNTER → 2022-08-19 | Outpatient (CLI) | payer MEDICARE ==
--- NOTE | 2022-08-19 18:18 | US ---
EXAMINATION TYPE: US thyroid st tissue head/neck DATE OF EXAM: 08/19/2022 COMPARISON: Multiple thyroid ultrasounds with most recent 04/12/2020 CLINICAL INDICATION: Female, 81 years old with history of E038 OTHER SPECIFIED HYPOTHYROIDISM; hypoth yroidism. History of thyroid nodule GLAND SIZE: Right Lobe: 3.3 x 1.0 x 1.4 cm Overall Parenchyma: heterogenous Left Lobe: 2.3 x 0.8 x 0.7 cm Overall Parenchyma: heterogenous Isthmus Thickness: 0.3 cm NODULES RIGHT: # of nodules measured on right: 1 1. 0.8 X 0.6 x 0.7 cm, mid , solid or almost completely solid, hypoechoic nodule, which is wider th an tall, with smooth margins, without echogenic foci. TR 4. Prior size: 0.9 x 0.7 x 0.8 cm LEFT: # of nodules measured on left: 0 ISTHMUS: # of nodules measured in the isthmus: 0 Bilateral neck scanned, multiple normal appearing lymph nodes, largest = 2.4cm on the right IMPRESSION: 1. Stable 8 mm right thyroid lobe TR 4 nodule. No new thyroid nodules. 2. Small heterogenous appearance of the thyroid gland.
== END | disposition home or self-care (01) ==
LOC: RADUSWWP 16:38
PROVIDERS: ATTEND Internal Medicine Endocrinology, Diabetes & Metabolism
DX: E04.1 Nontoxic single thyroid nodule (principal); E03.8 Other specified hypothyroidism
CPT/HCPCS: 76536

== ENCOUNTER → 2023-01-01 | Outpatient (CLI) | payer MEDICARE ==
--- NOTE | 2023-01-01 11:34 | XR ---
EXAMINATION TYPE: XR ankle complete RT DATE OF EXAM: 01/01/2023 10:54 AM CLINICAL INDICATION:Female, 82 years old with history of M25. 571 PAIN IN RIGHT ANKLE AND JOINTS OF R IGHT F; [facility] COMPARISON: None TECHNIQUE: XR ankle complete RT; ankle is imaged in frontal, lateral and oblique projections. FINDINGS: There is no evidence of acute osseous pathology. The joint spaces are well-preserved without evidenc e of subluxation or dislocation. Kager's fat pad is intact. Mild soft tissue swelling around the ankl e. No radiopaque foreign bodies are identified. Calcaneal Achilles enthesophyte formation plantar spu rring. IMPRESSION: 1. No evidence of acute fracture. 2. Subcutaneous swelling around the ankle likely secondary to underlying soft tissue injury.
== END | disposition home or self-care (01) ==
LOC: RADXRMAIN 10:20
PROVIDERS: ATTEND Family Medicine
DX: M25.571 Pain in right ankle and joints of right foot (principal); M79.89 Other specified soft tissue disorders

== ENCOUNTER → 2023-01-15 | Outpatient (CLI) | payer MEDICARE ==
[2023-01-15 16:59] LABS: T4, Free (Free Thyroxine) 1.08 ng/dL (0.80-1.80)
== END | disposition home or self-care (01) ==
LOC: LABWHC1 11:22
PROVIDERS: ATTEND Internal Medicine Endocrinology, Diabetes & Metabolism
DX: E04.2 Nontoxic multinodular goiter (principal)
CPT/HCPCS: 36415; 84439; 84443

== ENCOUNTER → 2023-07-17 | Outpatient (CLI) | payer MEDICARE ==
[2023-07-18 04:15] LABS: T4, Free (Free Thyroxine) 1.06 ng/dL (0.80-1.80)
== END | disposition home or self-care (01) ==
LOC: LABWHC1 15:20
PROVIDERS: ATTEND Internal Medicine Endocrinology, Diabetes & Metabolism
DX: E04.1 Nontoxic single thyroid nodule (principal)
CPT/HCPCS: 36415; 84439; 84443

== ENCOUNTER → 2023-07-24 | Outpatient (CLI) | payer MEDICARE ==
--- NOTE | 2023-07-24 17:32 | US ---
EXAMINATION TYPE: US thyroid st tissue head/neck DATE OF EXAM: 07/24/2023 COMPARISON: Thyroid ultrasound 08/19/2022, 04/12/2020 CLINICAL INDICATION: Female, 82 years old with history of E04.2 NONTOXIC MULTINODULAR GOITER; hypothy roidism, rt nodule GLAND SIZE: Right Lobe: 3.0x0.9x1.0 cm Overall Parenchyma: heterogeneous Left Lobe: 2.5x1.0x1.0 cm Overall Parenchyma: heterogeneous Isthmus Thickness: 0.1 cm NODULES RIGHT: # of nodules measured on right: 1 1. 0.7 X 0.5 x 0.7 cm, mid mid, solid or almost completely solid, hypoechoic nodule, which is wider than tall, with ill-defined margins, without echogenic foci. TR 4. Stable to slightly smaller from p rior exam. Prior size: 0.8 x 0.6 x 0.7 cm LEFT: # of nodules measured on left: 0 ISTHMUS: # of nodules measured in the isthmus: 0 Bilateral neck scanned, bilateral lymphadenopathy. Largest lymph node on the right side measures 2.3x0.4x0.6cm appears stable from last exam, largest ly mph node on the left measures 1.0x0.8x0.5cm. Relatively stable. IMPRESSION: Overall relatively stable examination. No new or enlarging thyroid nodules.
== END | disposition home or self-care (01) ==
LOC: RADUSWWP 09:42
PROVIDERS: ATTEND Internal Medicine Endocrinology, Diabetes & Metabolism
DX: E04.2 Nontoxic multinodular goiter (principal)
CPT/HCPCS: 76536

== ENCOUNTER → 2023-12-25 | Outpatient (CLI) | payer MEDICARE ==
--- NOTE | 2023-12-25 10:44 | MM ---
Reason for Exam: Clinical finding. Indicated Problems: Large axillary lymph nodes of the left side for 1 Month(s). Patient History: Menarche at age 15. First Full-Term at age 19. Left ovary removed at age 35. Hysterectomy at age 35. Postmenopausal. Risk Values: Brenda 5 year model risk: 1.0%. NCI Lifetime model risk: 1.2%. Prior Study Comparison: No prior studies available for comparison. Tissue Density: The breasts are almost entirely fatty. Findings: Analyzed By CAD. No evidence for mass or distortion. Benign calcifications present. Mild left axillary prominence of the lymph nodes. Ultrasound recommended. Overall Assessment: Incomplete: need additional imaging evaluation, BI-RAD 0 Management: Diagnostic Breast Ultrasound of the left breast. . Results were given to the patient verbally at the time of exam. Patient should continue monthly self-breast exams. A clinical breast exam by your physician is recommended on an annual basis. This exam should not preclude additional follow-up of suspicious palpable abnormalities. Note on Brenda scores and lifetime risk: 1. A Brenda score greater than 3% is considered moderate risk. If this is the case, consider specialist referral to assess eligibility for a risk reducing agent. 2. If overall lifetime risk for the development of breast cancer is 20% or higher, the patient may qualify for future screening with alternating mammogram and breast MRI. [facility], , 12/25/2023 10:41 AM. Electronically signed and approved by: Henri Hdez M.D. Radiologis
--- NOTE | 2023-12-25 11:13 | USB ---
Reason for Exam: Additional evaluation requested from abnormal screening. Patient History: Menarche at age 15. First Full-Term at age 19. Left ovary removed at age 35. Hysterectomy at age 35. Postmenopausal. Risk Values: Brenda 5 year model risk: 1.0%. NCI Lifetime model risk: 1.2%. Technique: Method: Targeted. Findings: The axilla of the left breast was scanned. Several low right axillary lymph nodes are seen none of which appear pathologic. Normal fatty ginna seen. Short axis measurements are up to 6 mm. No solid masses present.. Overall Assessment: Benign, BI-RAD 2 Management: Screening Mammogram of both breasts in 1 year. A clinical breast exam by your physician is recommended on an annual basis and results should be correlated with mammographic findings. This exam should not preclude additional follow-up of suspicious palpable abnormalities. Results were given to the patient verbally at the time of exam. [facility], , 12/25/2023 10:47 AM. Electronically signed and approved by: Henri Hdez M.D. Radiologis
== END | disposition home or self-care (01) ==
LOC: RADMAMWWP 09:53
PROVIDERS: ATTEND Family Medicine
CPT/HCPCS: 77062; 77066

== ENCOUNTER 2024-06-21 20:06 | Emergency (ER) | payer MEDICARE ==
[2024-06-21 20:12] VITALS: RESP 18; TEMP 97.7
--- NOTE | 2024-06-21 20:30 | ED ---
ENT HPI - General Chief complaint: ENT Stated complaint: Foreign object in Left Ear Time Seen by Provider: 06/21/24 20:13 Source: patient, RN notes reviewed Mode of arrival: ambulatory Limitations: no limitations - History of Present Illness Initial comments: 83-year-old female presents emergency department with chief complaint of foreign body ear. Patient states that part of her hearing aid is stuck in her left ear. Patient denies any bleeding no other complaints. - Related Data Home Medications Medication Instructions Recorded Confirmed metFORMIN HCL [Glucophage] 500 mg PO BID 09/20/15 11/25/17 amLODIPine BESYLATE [Norvasc] 5 mg PO DAILY 01/24/17 11/25/17 Ibuprofen [Motrin] 800 mg PO Q8H PRN 10/19/17 11/25/17 Esomeprazole Magnesium [NexIUM] 40 mg PO DAILY 11/25/17 11/25/17 Vit C/E/Zn/Coppr/Lutein/Zeaxan 1 cap PO BID 11/25/17 11/25/17 [Preservision Areds 2 Softgel] Previous Rx's Medication Instructions Recorded Famotidine [Pepcid] 20 mg PO BID #10 tablet 08/22/17 Allergies Allergy/AdvReac Type Severity Reaction Status Date / Time ciprofloxacin [From Cipro] Allergy Rash/Hives Verified 11/25/17 16:30 Sulfa (Sulfonamide Allergy Rash/Hives Verified 11/25/17 16:30 Antibiotics) Review of Systems ROS Statement: Those systems with pertinent positive or pertinent negative responses have been documented in the HPI. ROS Other: All systems not noted in ROS Statement are negative. Past Medical History Past Medical History: Chest Pain / Angina, Diabetes Mellitus, GERD/Reflux, Hypertension, Osteoarthritis (OA), Thyroid Disorder Additional Past Medical History / Comment(s): diverticulitits, hemorrhoids, slight urinary incontinence,, Arthritis, thyroid nodules, prediabetic History of Any Multi-Drug Resistant Organisms: ESBL Date of last positivie culture/infection: 02/18/24 MDRO Source:: urine Past Surgical History: Adenoidectomy, Appendectomy, Bladder Surgery, Hysterectomy, Tonsillectomy Additional Past Surgical History / Comment(s): Colonoscopy, carpal tunnel release, bone spur removed from right foot. Past Anesthesia/Blood Transfusion Reactions: No Reported Reaction Past Psychological History: Anxiety Smoking Status: Never smoker Past Alcohol Use History: Occasional Past Drug Use History: None Reported - Past Family History Mother Family Medical History: No Reported History Son(s) Family Medical History: Cancer Additional Family Medical History / Comment(s): Brain CA/, 2nd son - pulmonary fibrosis - , 1 son in house fire. General Exam Limitations: no limitations General appearance: alert, in no apparent distress Head exam: Present: atraumatic, normocephalic, normal inspection Eye exam: Present: normal appearance, PERRL, EOMI. Absent: scleral icterus, conjunctival injection, periorbital swelling ENT exam: Present: normal oropharynx, mucous membranes moist, TM's normal bilaterally. Absent: normal external ear exam (Left ear black foreign body rubber noted) Neck exam: Present: normal inspection, full ROM. Absent: tenderness, meningismus, lymphadenopathy Respiratory exam: Present: normal lung sounds bilaterally. Absent: respiratory distress, wheezes, rales, rhonchi, stridor Cardiovascular Exam: Present: regular rate, normal rhythm, normal heart sounds. Absent: systolic murmur, diastolic murmur, rubs, gallop, clicks Course Vital Signs 06/21/24 06/21/24 20:10 20:34 Temperature 97.7 F 97.7 F Pulse Rate 77 73 Respiratory 18 18 Rate Blood Pressure 165/72 157/70 O2 Sat by Pulse 96 98 Oximetry Procedures - Foreign Body Removal Ear Location: ear canal (L) Foreign Body Suspected: other (Rubber earpiece) Foreign Body Removed: yes Foreign Body Removal Technique: instrumentation Tympanic Membrane Intact: Yes Patient Tolerated Procedure: well, no complications Complications: none Medical Decision Making - Medical Decision Making Was pt. sent in by a medical professional or institution (, PA, HAND THERMAL CUTTER, urgent care, hospital, or alf...) When possible be specific @ -No Did you speak to anyone other than the patient for history (EMS, parent, family, police, friend...)? What history was obtained from this source @ -No Did you review nursing and triage notes (agree or disagree)? Why? @ -I reviewed and agree with nursing and triage notes Were old charts reviewed (outside hosp., previous admission, EMS record, old EKG, old radiological studies, urgent care reports/EKG's, alf records)? Report findings @ -No old charts were reviewed Differential Diagnosis (chest pain, altered mental status, abdominal pain women, abdominal pain men, vaginal bleeding, weakness, fever, dyspnea, syncope, headac he, dizziness, GI bleed, back pain, seizure, CVA, palpatations, mental health, musculoskeletal)? @ -Ear foreign body, TM rupture EKG interpreted by me (3pts min.). @None X-rays interpreted by me (1pt min.). @ -None done CT interpreted by me (1pt min.). @ -None done U/S interpreted by me (1pt. min.). @ -None done What testing was considered but not performed or refused? (CT, X-rays, U/S, labs)? Why? @ -None What meds were considered but not given or refused? Why? @ -None Did you discuss the management of the patient with other professionals (professionals i.e. , PA, HAND THERMAL CUTTER, lab, RT, psych nurse, social welfare administrator, television antenna installer, teacher, strategic debriefing officer, complex case manager)? Give summary @ -No Was smoking cessation discussed for >3mins.? @ -No Was critical care preformed (if so, how long)? @ -No Were there social determinants of health that impacted care today? How? (Homelessness, low income, unemployed, alcoholism, drug addiction, transportation, low edu. Level, literacy, decrease access to med. care, usp, rehab)? @ -No Was there de-escalation of care discussed even if they declined (Discuss DNR or withdrawal of care, Hospice)? DNR status @ -No What co-morbidities impacted this encounter? (DM, HTN, Smoking, COPD, CAD, Cancer, CVA, ARF, Chemo, Hep., AIDS, mental health diagnosis, sleep apnea, morbid obesity)? @ -None Was patient admitted / discharged? Hospital course, mention meds given and rout e, prescriptions, significant lab abnormalities, going to OR and other pertinent info. @ -Discharge patient's earpiece was removed without complications. Patient discharged in stable condition return parameters g discussed Undiagnosed new problem with uncertain prognosis? @ -No Drug Therapy requiring intensive monitoring for toxicity (Heparin, Nitro, Insulin, Cardizem)? @ -No Were any procedures done? @ -No Diagnosis/symptom? @ -[Ear canal foreign body Acute, or Chronic, or Acute on Chronic? @ -Acute Uncomplicated (without systemic symptoms) or Complicated (systemic symptoms)? @ -Uncomplicated Side effects of treatment? @ -No Exacerbation, Progression, or Severe Exacerbation? @ -No Poses a threat to life or bodily function? How? (Chest pain, [place], [place], pneumonia, PE, COPD, DKA, ARF, appy, cholecystitis, CVA, Diverticulitis, Homicidal, Suicidal, threat to staff... and all critical care pts) @ -No Disposition Clinical Impression: Ear foreign body Disposition: HOME SELF-CARE Condition: Stable Instructions (If sedation given, give patient instructions): Ear Foreign Body (ED) Additional Instructions: Please return to the Emergency Department if symptoms worsen or any other concerns. Is patient prescribed a controlled substance at d/c from ED?: No Referrals: Ozzy Stout DO [Primary Care Provider] - 1-2 days Time of Disposition: 20:30
[2024-06-21 20:36] VITALS: BP 157/70; PULSE 73
== END 2024-06-21 20:56 | disposition home or self-care (01) ==
LOC: EC 20:06
DX: T16.2XXA Foreign body in left ear, initial encounter (principal); Z88.1 Allergy status to other antibiotic agents; Z88.2 Allergy status to sulfonamides; W44.G1XA Audio device entering into or through a natural orifice, initial encounter
CPT/HCPCS: 69200; 99282